=== PATIENT | female | born 1975 | race Caucasian/White ===

== ENCOUNTER 2019-06-11 12:24 | Observation (INO) | payer BC, SELFPAY ==
[2019-06-12 02:08] VITALS: RESP 17
[2019-06-12] MEDS: oxyCODONE-APAP 5-325 mg Tablet PO ×2 (02:08→09:05)
[2019-06-12 04:00] VITALS: BP 123/78; BP 123/79; PULSE 87; RESP 16; TEMP 36.9; O2SAT 96
[2019-06-12 07:35] LABS: Hematocrit 35.5 % (37.0-47.0); Hemoglobin 11.4 g/dL (11.5-15.3); Mean Corpuscular HGB Conc 32.1 g/dL (30.0-36.0); Mean Corpuscular Hemoglobin 31.8 pg (28.0-34.0); Mean Corpuscular Volume 98.9 fL (81-99); Mean Platelet Volume 9.7 fL (7.4-10.4); Platelet Count 239 10^3/cmm (130-400); Red Blood Count 3.59 10^6/uL (4.1-5.3); Red Cell Distribution Width 12.6 % (12.1-15.1); White Blood Count 12.7 10^3/uL (4.0-10.0)
[2019-06-12 09:05] VITALS: RESP 17
[2019-06-12] MEDS: docusate sodium 100 mg Capsule PO (09:06)
--- NOTE | 2019-06-12 10:57 | PM.DCS ---
Discharge Providers Date of Admission: 06/11/19 12:24 Date of Discharge: 06/12/19 Attending Provider at Admission: Star Lizarraga Attending Provider at Discharge: Star Lizarraga Primary Care Provider: France Laguerre MD Diagnoses at Discharge Discharge Diagnosis (1) Pelvic pain: Status: Acute (2) Retained menstruation: Status: Resolved Other Information Additional DC diagnoses/information: Fibromyalgia, H/o Migraine headaches, Anxiety with Panic disorder, Degenerative Disc Disease of Lumbar region Reason for Visit Reason for Visit: Reason For Visit: Pelvic Pain Hospital Course Hospital Course: Patient is a 44-year-old white female 3, para 3-0-0-3 who is status post endometrial ablation. She had presented to the office on 04/19/2019 for evaluation of pelvic pain and suspected ruptured cyst. She had been evaluated in the ER on 03/16/2019 due to sudden onset of severe left lower quadrant pain. During her evaluation she was noted to have increased fluid within the pelvis on ultrasound and was reported as possibly having had a ruptured cyst. Since the evaluation in the ER, she is continued to have pain which is present mainly in the left lower quadrant but does them intermittently across the entire lower abdomen. She denies any patterns to the pain During evaluation in the office, she was noted to have significant left lower quadrant pain. She also had some uterine tenderness noted. She had a repeat ultrasound which was showing an irregular endometrial lining with small fluid collection. Suspicions were for retained menstrual blood following the endometrial ablation. Due to the continued pain, patient decided proceed to a hysterectomy with removal of ovaries. Patient was brought to the hospital for same-day surgery and had a laparoscopic assisted vaginal hysterectomy with bilateral salpingo-oophorectomy performed on 06/11/[address] Star Lizarraga. She tolerated the surgery well. Following surgery she was initially treated with parenteral pain medication and was switched over to oral pain medication by the evening. She was started on clear liquids the evening and tolerated these. Hernandez catheter was discontinued during the night. On post operative day 1, she was doing well. She was ambulating without lightheadedness or dizziness. She stated that her pain was controlled on oral pain medications. She denied any shortness of breath or chest pains. She reported tolerating a regular diet without nausea or vomiting. She was urinating without difficulty. She was doing well and was discharged to home on postoperative day 1. Hormone replacement was discussed with patient. Risks, benefits, and alternatives were discussed. Questions were answered. Patient wished to start estrogen patches. Discharge instructions were discussed. Physical Exam Const: COMMON NORMALS: no apparent distress, average body habitus, alert and well nourished GENERAL APPEARANCE: well developed ORIENTATION/CONSCIOUSNESS: Yes oriented to person, Yes oriented to place and Yes oriented to time Resp: COMMON NORMALS: normal respiratory effort and clear to auscultation bilaterally AUSCULTATION: clear to auscultation bilaterally Cardio: COMMON NORMALS: regular rate, regular rhythm, no gallops, no murmurs and no rub RATE: regular rate RHYTHM: regular rhythm PERIPHERAL PULSES: posterior tibial pulses present GI: COMMON NORMALS: soft to palpation, non-tender, no hepatosplenomegaly and no masses AUSCULTATION: Yes normoactive bowel sounds PALPATION: Yes soft, Yes no hepatosplenomegaly and No hernia OTHER: Laparoscopy sites well approximated without erythema or induration noted. Bruising present. : EXTERNAL FEMALE EXAM: No hernia Neuro: SENSORIUM/ORIENTATION: Yes alert, Yes oriented to person, Yes oriented to place and Yes oriented to time Psych: COMMON NORMALS: affect normal MOOD & AFFECT: Yes euthymic mood Discharge Data Data Completed and Pending: Labs from last 24 hours 06/12/19 06/11/19 07:27 08:03 WBC 12.7 H RBC 3.59 L Hgb 11.4 L Hct 35.5 L MCV 98.9 MCH 31.8 MCHC 32.1 RDW 12.6 Plt Count 239 MPV 9.7 Urine HCG, Qual Cancelled Vitals: Last Vital Signs Temp 98.5 F 06/12/19 04:00 Pulse 87 06/12/19 04:00 Resp 17 06/12/19 09:05 BP 123/79 06/12/19 04:00 Pulse Ox 96 06/12/19 04:00 Discharge Plan Discharge Patient Disposition: Home, Self-Care Condition: Stable Prescriptions: New oxycodone-acetaminophen 5-325 mg Tablet 1 - 2 tab PO Q6H PRN (Reason: Pain) Qty: 30 RF: 0 estradiol 0.05 mg/24 hr patch weekly 1 patch transdermal .once a week Qty: 4 RF: 12 Continued cyclobenzaprine 10 mg Tablet 10 mg PO BEDTIME PRN (Reason: Muscle Spasm) RF: 0 methocarbamol 500 mg Tablet 500 mg PO TID RF: 0 Zyrtec 10 mg Tablet 10 mg PO DAILY RF: 0 Imitrex 25 mg Tablet 25 mg PO QID PRN (Reason: Headache) RF: 0 hydrocodone-acetaminophen 10-325 mg Tablet 1 tab PO Q4H PRN (Reason: Pain) RF: 0 Xanax 0.25 mg Tablet 0.25 mg PO QID RF: 0 Benadryl 25 mg Capsule 50 mg PO QID PRN (Reason: Allergy Symptoms) RF: 0 Zoloft 25 mg Tablet 25 mg PO DAILY RF: 0 Sudogest 30 mg Tablet 30 mg PO Q6H RF: 0 Ambien 5 mg Tablet 5 mg PO BEDTIME RF: 0 Flonase Allergy Relief 50 mcg/actuation [place],Suspension 1 spray INTRANASAL DAILY RF: 0 Topamax 50 mg Tablet 50 mg PO BID RF: 0 milnacipran 100 mg Tablet 100 mg PO BEDTIME RF: 0 Discharge Orders: Discharge Order (Routine); Ordered 06/12/19 Ordered By: Star Lizarraga Referrals: Star Lizarraga MD [Physician] - 2 weeks ([facility] and schedule your 2 week and 6 week follow up appointment) Discharge Diet: Regular Discharge Activity: Limit activity as instructed Patient Instructions: Oxycodone/Acetaminophen (By mouth), Estradiol (By mouth), Laparoscopically Assisted Vaginal Hysterectomy (DC), OB Abdominal Surgery - [facility], OB Discharge Report, OB Food/Drug Interaction Guide Activity Restrictions/Additional Instructions: Take [id number] ibuprofen 200 mg, 4 tablets 3 times a day scheduled for the first four days and then take as needed. Take MiraLax as needed for constipation (follow instructions on the bottle). Discharge Attestations Time Spent in Discharge Care*: less than 30 min Specific Discharge Activities: Specific discharge activities: educating patient Status at Discharge: Cognitive status at discharge: cognitively intact, Behavioral status at discharge: cooperative, Functional status at discharge: independent ambulation Overall status at discharge: patient is back to baseline Quality Metrics Clinical Quality Measures During this hospital stay, did patient experience: None Coding Level of Care Code Acute Director [employer] Diagnoses Pelvic pain R10.2 Retained menstruation N94.89
[2019-06-12 11:45] VITALS: BP 131/88; PULSE 92; RESP 17; TEMP 36.6
== END 2019-06-12 11:45 | disposition home or self-care (01) ==
LOC: OBGYN 15:54
PROVIDERS: Admitting Provider Obstetrics & Gynecology; Family Provider Family Medicine; PCP Family Medicine; Visit Provider Obstetrics & Gynecology
DX: N81.2 Incomplete uterovaginal prolapse (principal); N94.89 Other specified conditions associated with female genital organs and menstrual cycle; N73.6 Female pelvic peritoneal adhesions (postinfective); M79.7 Fibromyalgia; F41.9 Anxiety disorder, unspecified; F17.210 Nicotine dependence, cigarettes, uncomplicated; Z79.891 Long term (current) use of opiate analgesic
CPT/HCPCS: 58552; 36415; 81001; 85025; 86850; 86900; 86901; 88307; G0378; J0690; J1100; J1885; J2001; J2405; J2704; J3010; J3490

== ENCOUNTER 2019-07-03 14:40 | Outpatient (CLI) | payer BC, SELFPAY ==
--- NOTE | 2019-07-03 14:48 | MM_ITS ---
WS: [id number] BILATERAL SCREENING DIGITAL MAMMOGRAM WITH CAD HISTORY: SCREENING COMPARISON: 11/28/2017 and 11/17/2017 and 08/09/2016 Bilateral CC and MLO views submitted. Computer aided detection analyzed. Breast composition: The breasts are heterogeneously dense, which may obscure small masses. No suspici ous masses, microcalcifications or architectural distortion. MM/[id number] IMPRESSION: BI-RADS: 2-Benign FOLLOW UP: 1 Year Follow-up
== END 2019-07-03 14:41 | disposition home or self-care (01) ==
LOC: RADSHAW 14:45
PROVIDERS: Family Provider Family Medicine; PCP Family Medicine; Visit Provider Nurse Practitioner Family
DX: Z12.31 Encounter for screening mammogram for malignant neoplasm of breast (principal)
CPT/HCPCS: 77067

== ENCOUNTER 2019-08-23 09:31 | Outpatient (CLI) | payer BC, SELFPAY ==
--- NOTE | 2019-08-23 09:56 | XR_ITS ---
WS: [id number] Right knee, 3 views, 08/23/2019 Clinical Data: KNEE PAIN Comparison: None. Findings: No fractures or dislocations are seen. The joint spaces are normal. The patella is intact. The soft t issues are unremarkable. XR/XR knee RT 3V* [id number] Impression: Negative right knee.
== END 2019-08-23 09:32 | disposition home or self-care (01) ==
LOC: RAD 09:35
PROVIDERS: Family Provider Family Medicine; PCP Family Medicine; Visit Provider Orthopaedic Surgery
DX: M25.561 Pain in right knee (principal)
CPT/HCPCS: 73562

== ENCOUNTER → 2020-06-01 11:58 | Outpatient (BNVA) | payer BC, SELFPAY | PROVIDERS: Family Provider Family Medicine; PCP Family Medicine; Visit Provider Specialist | DX: M17.11 Unilateral primary osteoarthritis, right knee (principal) | CPT/HCPCS: 73560; 73565 ==

== ENCOUNTER 2020-09-28 14:26 | Outpatient (CLI) | payer OTHER, SELFPAY ==
--- NOTE | 2020-09-28 14:31 | MM_ITS ---
WS: [id number] BILATERAL DIGITAL DIAGNOSTIC MAMMOGRAM MAMMOGRAPHY WITH CAD CLINICAL INFORMATION: LOCALIZED SWELLING,MASS,AND LUMP LT AXILLA COMPARISON: July 03, 2019 TECHNIQUE: Bilateral CC, MLO, and ML views. FINDINGS: Scattered fibroglandular densities bilaterally. Palpable markers left breast no definite underlying m ammographic abnormalities. Dense parenchymal tissue upper outer left breast. Ultrasound is pending. Breast parenchyma is otherwise similar in appearance to July 03, 2019. Incidental axillary tail ly mph nodes. ULTRASOUND BREAST LEFT TECHNIQUE: Ultrasound left breast focused area of concern. CLINICAL INFORMATION: LOCALIZED SWELLING,MASS,AND LUMP LT AXILLA COMPARISON: None. FINDINGS: Ultrasound left breast patient directed area. Incidental axillary tail lymph node measuring 1.6 x 1.5 x 1.0 cm. Preserved fatty hilum. No significant cortical thickening. Otherwise normal underlying arthur ast parenchyma in the areas of concern left breast upper-outer quadrant and left axilla. No suspiciou s lesions to target for biopsy. MM/[id number] IMPRESSION: BI-RADS: 2-Benign FOLLOW UP: 1 Year Follow-up Recommend return to annual screening mammography.
== END 2020-09-28 14:27 | disposition home or self-care (01) ==
LOC: RADSHAW 14:29
PROVIDERS: PCP Family Medicine; Visit Provider Family Medicine
DX: R22.32 Localized swelling, mass and lump, left upper limb (principal)
CPT/HCPCS: 76642; 77066

== ENCOUNTER → 2021-07-25 14:45 | Outpatient (BNVA) | payer OTHER, SELFPAY | PROVIDERS: PCP Family Medicine; Visit Provider Nurse Practitioner | DX: Z20.822 Contact with and (suspected) exposure to COVID-19 (principal) | CPT/HCPCS: 87635 ==

== ENCOUNTER 2021-11-09 12:38 | Outpatient (CLI) | payer OTHER, SELFPAY ==
--- NOTE | 2021-11-09 13:07 | MM_ITS ---
WS: [id number] Bilateral screening 3D tomosynthesis digital mammogram, 11/09/2021 Clinical Data: Z12.39 - Encounter for other screening for malignant neop... Comparison: 09/28/2020, 07/03/2019, 11/28/2017, 11/17/2017, 08/25/2016, 08/09/2016, 03/20/2015, 03/04/2014, , 08/23/2011, 01/05/2007. Findings: The breast parenchymal pattern shows fibroglandular tissue. No spiculated masses or clustered calcifi cations are seen. There are no secondary signs of carcinoma. MM/[id number] Impression: 1. Negative bilateral mammogram unchanged. 2. Recommend annual screening mammograms. BIRADS: 1-Negative FOLLOW UP: 1 Year Follow-up The CAD box car checker was used.
== END 2021-11-09 12:39 | disposition home or self-care (01) ==
LOC: RAD 12:39
PROVIDERS: PCP Family Medicine; Visit Provider Obstetrics & Gynecology
DX: Z12.39 Encounter for other screening for malignant neoplasm of breast (principal)
CPT/HCPCS: 77063; 77067

== ENCOUNTER 2022-04-25 14:53 | Outpatient (CLI) | payer OTHER, MEDICAID, SELFPAY ==
--- NOTE | 2022-04-25 15:09 | XR_ITS ---
WS: [id number] Exam: XR chest 2V* [id number] Date/Time of Exam: 04/25/2022 3:14 PM Reason For Exam: DYSPNEA No priors. Findings: The lungs are clear and fully expanded. Costophrenic angles are sharp. No infiltrates. Bronchovascula r relief appears normal. Cardiac silhouette is unremarkable. Bony elements are intact. Nipple jewelry noted. XR/XR chest 2V* [id number] IMPRESSION: Unremarkable chest radiograph.
== END 2022-04-25 14:54 | disposition home or self-care (01) ==
LOC: RAD 14:55
PROVIDERS: PCP Family Medicine; Visit Provider Family Medicine
DX: R06.00 Dyspnea, unspecified (principal)
CPT/HCPCS: 71046

== ENCOUNTER 2022-05-12 10:02 | Outpatient (CLI) | payer OTHER, SELFPAY | END 2022-05-12 10:03 | disposition home or self-care (01) | LOC: RT 10:03 | PROVIDERS: PCP Family Medicine; Visit Provider Family Medicine | DX: R06.00 Dyspnea, unspecified (principal) | CPT/HCPCS: 94060; 94726; 94729; J7613 ==

== ENCOUNTER 2022-09-30 12:51 | Outpatient (CLI) | payer OTHER, MEDICAID, SELFPAY ==
--- NOTE | 2022-09-30 | US_ITS ---
WS: [id number] ULTRASOUND SOFT TISSUES RIGHT axilla HISTORY: RIGHT AXILLA FULLNESS COMPARISON: None available. TECHNIQUE: 2-D and color Doppler imaging is submitted. Ultrasound in the RIGHT axilla demonstrates no soft tissue masses. No lipomatous tumors. No adenopath y. US/US soft tissue/extremity [id number] IMPRESSION: Negative ultrasound RIGHT axilla.
== END 2022-09-30 12:52 | disposition home or self-care (01) ==
LOC: RAD 12:56
PROVIDERS: PCP Family Medicine; Visit Provider Family Medicine
DX: R22.31 Localized swelling, mass and lump, right upper limb (principal)
CPT/HCPCS: 76882

== ENCOUNTER 2022-10-03 14:00 | Outpatient (CLI) | payer OTHER, MEDICAID, SELFPAY | END 2022-10-03 14:01 | disposition home or self-care (01) | LOC: SLEEP 10-04 15:43 | PROVIDERS: PCP Family Medicine; Visit Provider Family Medicine | DX: R06.83 Snoring (principal); G47.33 Obstructive sleep apnea (adult) (pediatric) | CPT/HCPCS: G0399 ==

== ENCOUNTER → 2023-01-25 15:02 | Outpatient (BNVA) | payer OTHER, MEDICAID, SELFPAY | PROVIDERS: PCP Family Medicine; Visit Provider Specialist | DX: M17.0 Bilateral primary osteoarthritis of knee | CPT/HCPCS: 73560; 73565 ==

== ENCOUNTER 2023-03-10 11:36 | Outpatient (CLI) | payer OTHER, MEDICAID, SELFPAY ==
--- NOTE | 2023-03-10 11:48 | US_ITS ---
WS: [id number] RIGHT UPPER QUADRANT ULTRASOUND HISTORY: RUQ PAIN COMPARISON: None available. Liver: 13.9 cm in length. Normal size liver and echogenicity. No bile duct dilatation or mass. Portal Vein: Normal hepatopetal flow with monophasic waveform. Gallbladder: Numerous stones are present in the gallbladder. There is a large amount of shadowing. No wall thickening CBD: 0.4 cm Pancreas: Portions of the head and tail are obscured. The body is negative. Right kidney: 9.7 cm in length. Normal size and echogenicity. No hydronephrosis or mass. Aorta and IVC: Unremarkable abdominal aorta and IVC. No ascites. IMPRESSION: 1. Cholelithiasis. Numerous stones nearly fill the gallbladder lumen. No evidence for acute cholecyst itis. 2. No bile duct obstruction.
== END 2023-03-10 11:37 | disposition home or self-care (01) ==
PROVIDERS: PCP Family Medicine; Visit Provider Family Medicine
DX: K80.20 Calculus of gallbladder without cholecystitis without obstruction (principal); R10.11 Right upper quadrant pain
CPT/HCPCS: 76705

== ENCOUNTER 2023-04-09 13:03 | Emergency (ER) | payer MEDICAID, SELFPAY ==
[2023-04-09] VITALS (11 sets, daily range): BP systolic 110–152; BP diastolic 55–103; PULSE 88–110; RESP 17–22; TEMP 36.4; O2SAT 84–100; BMI 32.3
--- NOTE | 2023-04-09 13:18 | ED_ITS ---
HPI - Abdominal Pain General: Chief Complaint: Abdominal Pain Stated Complaint: abd pain Time Seen by Provider: 04/09/23 13:18 History of Present Illness: 48-year-old female presents emerged department complaints of nausea vomiting and right upper quadrant abdominal pain that is a 10 out of 10. She states she is been recently seen by a physician and received an ultrasound and is scheduled for a outpatient cholecystectomy in 7 days. She states the pain became unbearable after eating approximately 2 hours ago. She states that eating seems to make the pain worse nothing seems to make the pain better. She denies fevers chills or night sweats. She denies hematemesis or hematochezia Associated Symptoms: Reports nausea and vomiting Review of Systems General: Reports: 10 or more systems reviewed and unremarkable except in HPI and below GI: Reports: abdominal pain, nausea and vomiting PFSH ED PFSH: Medical History Degenerative arthritis of right knee Hypothyroidism Migraine headache Panic disorder Well woman exam with routine gynecological exam Surgical History S/P breast biopsy (~03/2012) S/P hysterectomy (06/11/19) ASTRID THORNTON LOA. Diag: Pelvic pain, Retained menstrual blood. Performed by Dr. Star Lizarraga at [facility] in [place], [place]. S/P lumpectomy, left breast (~2000) Performed at [facility] Status post hysteroscopic ablation of endometrium (06/23/15) Hysteroscopy with hydrothermal endometrial ablation. Performed by Dr. Star Lizarraga at [facility] Family History Mother Hypertension Diabetes Thyroid condition Grandmother Hypertension Brother Diabetes Grandfather Heart disease maternal Unknown No problems noted. Sister Breast cancer, Onset Age: 50 Family/Other Breast cancer Maternal aunt, 40's Social History Smoking and tobacco/nicotine status: former use of tobacco/nicotine Quit status (tobacco/nicotine): has quit using Year quit tobacco: 04/2019 Alcohol intake: current Alcohol intake frequency: few times a month Substance/Drug Use: current Other substance/drug use details: Reports when needed Additional social history: Well balanced diet Physical Exam Const: COMMON NORMALS: patient oriented x3 GENERAL APPEARANCE: in distress NUTRITIONAL APPEARANCE: overweight ORIENTATION/CONSCIOUSNESS: Yes awake, Yes oriented to person, Yes oriented to place and Yes oriented to time HENMT: COMMON NORMALS: normocephalic and moist oral mucous membranes HEAD & SCALP: normocephalic Eye: COMMON NORMALS: Equal, round and reactive pupils present and EOMs intact bilaterally PUPIL: Yes Equal, round and reactive pupils present Neck/C-Spine: COMMON NORMALS: full ROM, supple and no meningeal signs Resp: COMMON NORMALS: normal respiratory effort and clear to auscultation bilaterally AUSCULTATION: clear to auscultation bilaterally Cardio: COMMON NORMALS: regular rate, regular rhythm, S1 normal heart sound present, S2 normal heart sound present and Peripheral pulses 2+ throughout RATE: regular rate RHYTHM: regular rhythm HEART SOUNDS: S1 normal heart sound present and S2 normal heart sound present PERIPHERAL PULSES: Peripheral pulses 2+ throughout GI: COMMON NORMALS: Soft to palpation INSPECTION: Yes normal to inspection AUSCULTATION: Yes normoactive bowel sounds PALPATION: Yes Soft to palpation, Yes Tenderness to palpation present (GI) Details: RUQ and Yes Other GI palpation findings present (Positive Owusu sign) : COMMON NORMALS: Yes no CVA tenderness BLADDER/KIDNEY EXAM: Yes no CVA tenderness Back/Pelvis: COMMON NORMALS: no CVA tenderness, thoracic and lumbar spine normal to inspection and no thoracic nor lumbar tenderness Extremity: COMMON NORMALS: normal to inspection, full ROM and capillary refill normal Neuro: COMMON NORMALS: patient oriented x3, moves all extremities and no sensory deficits noted SENSORIUM/ORIENTATION: Yes oriented to person, Yes oriented to place and Yes oriented to time MENINGEAL SIGNS: Yes no meningeal signs Psych: COMMON NORMALS: mental status grossly normal, Normal thought process present and cooperative THOUGHT PROCESS: Normal thought process present Skin: COMMON NORMALS: no rashes or lesions noted GENERAL SKIN EXAM: no rashes or lesions noted Course ED course: I discussed the patient's laboratory findings as well as her presenting complaints of right upper quadrant abdominal pain with the general surgeon Dr. Potts. The general surgeon did come to the emergency department and see the patient in ER room 1 and advised that she could be discharged home with her follow-up and planned outpatient surgery as previously scheduled. He did request that I provide the patient with Augmentin as well as NSAIDs for pain control. I will provide the patient with discharge instructions and advised her of the general surgeons recommendations. Vital Signs: Vital signs: Vital Signs Temperature 97.5 F L 04/09/23 13:06 Pulse Rate 98 04/09/23 14:16 Respiratory Rate 18 04/09/23 14:52 Blood Pressure 152/102 04/09/23 14:16 Pulse Oximetry 98 04/09/23 14:52 Oxygen Delivery Me thod Room Air 04/09/23 13:06 MDM - Abdominal Pain Medical Decision Making Physical exam completed and documented, I will obtain laboratory evaluation to include a CBC and CMP to evaluate the patient's infectious status and electrolyte status and renal and hepatic function. I will obtain a urinalysis, UDS and urine hCG. I will consult the general surgeon who she is scheduled with for her planned cholecystectomy. I will provide the patient antinausea medication as well as pain medication for pain relief. I will obtain a repeat ultrasound to evaluate for obstruction and worsening of her cholelithiasis/cholecystitis. Medical Records I reviewed the patient's medical records. Lab Data I reviewed the patient's lab results. 04/09/23 13:41 04/09/23 13:41 Labs/Radiology: Radiology Impressions Gallbladder Ultrasound 04/09/23 14:28 IMPRESSION: Cholelithiasis with sonographic findings consistent with acute cholecystitis. Laboratory Results WBC 7.00 10^3/uL (3.29-11.43) 04/09/23 13:41 RBC 4.60 10^6/uL (3.85-5.65) 04/09/23 13:41 Hgb 14.10 g/dL (11.27-16.99) 04/09/23 13:41 Hct 43.3 % (36-47) 04/09/23 13:41 MCV 94.1 fl (85-98) 04/09/23 13:41 MCH 30.7 pg (27-33) 04/09/23 13:41 MCHC 32.6 g/dL (30-55) 04/09/23 13:41 RDW 12.7 % (12.1-15.1) 04/09/23 13:41 Plt Count 320 10^3/cmm (157-399) 04/09/23 13:41 MPV 9.7 fL (7.4-10.4) 04/09/23 13:41 Neut % (Auto) 60.5 % 04/09/23 13:41 Lymph % (Auto) 22.0 % 04/09/23 13:41 [place] % (Auto) 10.6 % 04/09/23 13:41 Eos % (Auto) 5.0 % 04/09/23 13:41 Baso % (Auto) 0.6 % 04/09/23 13:41 Neut # (Auto) 4.24 10^3/uL (1.8-7.7) 04/09/23 13:41 Lymph # (Auto) 1.5 10^3/uL (0.8-4.8) 04/09/23 13:41 [place] # (Auto) 0.7 10^3/uL (0.2-0.9) 04/09/23 13:41 Eos # (Auto) 0.4 10^3/uL (0.0-0.8) 04/09/23 13:41 Baso # (Auto) 0.0 10^3/uL (0.0-0.1) 04/09/23 13:41 Nucleated RBC % (auto) 0 % 04/09/23 13:41 Nucleated RBCs # 0.0 /100WBC 04/09/23 13:41 Sodium 141 mmol/L (136-145) 04/09/23 13:41 Potassium 3.8 mmol/L (3.5-5.1) 04/09/23 13:41 Chloride 104 mmol/L (98-107) 04/09/23 13:41 Carbon Dioxide 26 mmol/L (22-29) 04/09/23 13:41 Anion Gap 14.8 (5-19) 04/09/23 13:41 BUN 6 mg/dL (6-20) 04/09/23 13:41 Creatinine 0.5 mg/dL (0.5-0.9) 04/09/23 13:41 GFR Calculation 131.7 mL/min (90-130) H 04/09/23 13:41 Glucose 115 mg/dL (65-115) 04/09/23 13:41 Calculated Osmolality 291 mOsm/kg (285-295) 04/09/23 13:41 Calcium 9.5 mg/dL (8.5-10.5) 04/09/23 13:41 Total Bilirubin 0.3 mg/dL (0.15-1.2) 04/09/23 13:41 AST 48 U/L (0-32) H 04/09/23 13:41 ALT 32 U/L (0-33) 04/09/23 13:41 Alkaline Phosphatase 75 U/L (35-105) 04/09/23 13:41 Total Protein 6.7 g/dL (6.6-8.7) 04/09/23 13:41 Albumin 4.6 g/dL (3.5-5.2) 04/09/23 13:41 Globulin 2.1 g/dL (1.3-4.6) 04/09/23 13:41 Lipase 58 U/L (13-60) 04/09/23 13:41 Urine Color Yellow (Yellow) 04/09/23 14:02 Urine Appearance Clear (CLEAR) 04/09/23 14:02 Urine pH 7 (5-7) 04/09/23 14:02 Ur Specific [place] 1.015 (1.005-1.030) 04/09/23 14:02 Urine Protein Neg (Negative) 04/09/23 14:02 Urine Glucose (UA) Norm (Normal) 04/09/23 14:02 Urine Ketones Negative (Negative) 04/09/23 14:02 Urine Blood Neg (Negative) 04/09/23 14:02 Urine Nitrate Negative (Negative) 04/09/23 14:02 Urine Bilirubin Neg (Negative) 04/09/23 14:02 Urine Urobilinogen Norm mg/dL (Negative) 04/09/23 14:02 Ur Leukocyte Esterase Negative (Negative) 04/09/23 14:02 Urine Opiates Screen Negative ng/mL (Negative) 04/09/23 14:02 Ur Barbiturates Screen Negative ng/mL (Negative) 04/09/23 14:02 Ur Phencyclidine Scrn Negative ng/mL (Negative) 04/09/23 14:02 Ur Amphetamines Screen Negative ng/mL (Negative) 04/09/23 14:02 U Benzodiazepines Scrn Positive ng/mL (Negative) H 04/09/23 14:02 Urine Cocaine Screen Negative ng/mL (Negative) 04/09/23 14:02 U Marijuana (THC) Screen Positive ng/mL (Negative) H 04/09/23 14:02 All radiology interpretation(s) finalized by discharge ED provider radiology interpretation(s): COMPARISON: US abdomen limited [id number] 03/10/2023 12:01 PM FINDINGS: Liver: Normal. No masses. Gallbladder: Cholelithiasis with gallbladder distention and wall thickening up to 6 mm. Biliary ducts: Normal. No stones. No dilation. Pancreas:? Poorly visualized due to overlying bowel gas. Right kidney: Right kidney measures 8.7 cm in length. No mass. No hydronephrosis. US/US gall bladder [id number] IMPRESSION: Cholelithiasis with sonographic findings consistent with acute cholecystitis. ? Discharge Plan Discharge Patient Disposition: Home Clinical Impression: Cholecystitis with cholelithiasis, Abdominal pain Condition: Stable Prescriptions: New naproxen 500 mg tablet,delayed release (DR/EC) 500 mg PO BID PRN (Reason: pain) Qty: 30 0RF amoxicillin-pot clavulanate 875-125 mg tablet 1 tab PO BID 7 Days Qty: 14 0RF ondansetron HCl 4 mg tablet 4 mg PO Q8H 5 Days Qty: 15 0RF No Action alprazolam [Xanax] 0.25 mg tablet 0.25 mg PO DAILY PRN (Reason: Anxiety) albuterol sulfate 2.5 mg /3 mL (0.083 %) solution for nebulization 2.5 mg inhalation Q6H PRN (Reason: Shortness Of Breath) cyclobenzaprine 10 mg Tablet 10 mg PO BEDTIME PRN (Reason: Muscle Spasm) methocarbamol 500 mg Tablet 500 mg PO TID PRN (Reason: Muscle Spasm) diphenhydramine HCl [Benadryl] 25 mg Capsule 50 mg PO QID PRN (Reason: Allergy Symptoms) zolpidem [Ambien] 5 mg Tablet 5 mg PO BEDTIME PRN (Reason: Sleep) Zyrtec 10 mg tablet 10 mg PO DAILY Flonase Allergy Relief 50 mcg/actuation spray,suspension 1 spray INTRANASAL DAILY PRN (Reason: Allergy Symptoms) Sudogest 30 mg tablet 30 mg PO Q6H PRN (Reason: Congestion) buspirone 5 mg tablet 5 - 10 mg PO TID Vitamin B-2 100 mg Tablet 100 mg PO DAILY sumatriptan succinate 100 mg tablet See Rx Instructions .ROUTE .COMPLEX Rx Instructions: TAKE ONE TABLET BY MOUTH NEEDED directed FOR migraine HEADACHE MAY REPEAT in TWO hours IF needed; max DOSE TWO tablets in 24 hours prochlorperazine maleate 10 mg tablet See Rx Instructions .ROUTE .COMPLEX Rx Instructions: TAKE ONE TABLET BY MOUTH UP TO THREE TIMES DAILY NEEDED FOR HEADACHE Vitamin C 500 mg Tablet 500 mg PO DAILY levothyroxine 50 mcg tablet 50 mcg PO QAM ibuprofen 200 mg Tablet 800 mg PO Q6H PRN (Reason: Pain) fluoxetine 20 mg capsule See Rx Instructions .ROUTE .COMPLEX Rx Instructions: TAKE THREE CAPSULES daily FOR TWO WEEKS, THEN TAKE TWO CAPSULES daily FOR TWO WEEKS, THEN TAKE ONE CAPSULE daily FOR TWO WEEKS, THEN STOP Advair HFA 115-21 mcg/actuation HFA aerosol inhaler 2 puff INHALATION BID Savella 100 mg tablet 100 mg PO DAILY Women's Multivitamin 18 mg iron-400 mcg-500 mg Tablet 1 tab PO DAILY Ajovy Autoinjector 225 mg/1.5 mL auto-injector 225 mg SUBCUT Q30D estradiol 1 mg tablet 1 mg PO QAM Discharge Orders: Discharge ED (Routine); Ordered 04/09/23 Ordered By: Felipe Tyson Referrals: Ochoa Potts MD [Physician] - 4-7 days (follow-up as scheduled) France Laguerre MD [Primary Care Provider] - Discharge Diet: Advance as tolerated Discharge Activity: Resume usual activity Patient Instructions: Cholecystitis (ED), Abdominal Pain (ED) Coding Level of Care Code ED Special Order Jeweler for Raymond Vogel
[2023-04-09 13:53] LABS: Basophils % 0.6 %; Eosinophils # 0.4 10^3/uL (0.0-0.8); Hematocrit 43.3 % (36-47); Lymphocytes # 1.5 10^3/uL (0.8-4.8); Mean Corpuscular HGB Conc 32.6 g/dL (30-55); Mean Corpuscular Hemoglobin 30.7 pg (27-33); Mean Corpuscular Volume 94.1 fl (85-98); Mean Platelet Volume 9.7 fL (7.4-10.4); Monocytes # 0.7 10^3/uL (0.2-0.9); Monocytes % 10.6 %; Neutrophils # 4.24 10^3/uL (1.8-7.7); Neutrophils % 60.5 %; Nucleated Red Blood Cells % 0 %; Platelet Count 320 10^3/cmm (157-399); Red Cell Distribution Width 12.7 % (12.1-15.1)
[2023-04-09] MEDS: lidocaine 2% viscous 15 ML, aluminum-mag hydrox-simethicon 30 ML, sucralfate oral liq 1 GM PO (14:05)
[2023-04-09] MEDS: ondansetron 2 mg/ML SDV 2 mL 4 MG IVP (14:08)
[2023-04-09 14:11] LABS: Alanine Aminotransferase 32 U/L (0-33); Albumin Level 4.6 g/dL (3.5-5.2); Alkaline Phosphatase 75 U/L (35-105); Anion Gap 14.8 (5-19); Aspartate Amino Transferase 48 U/L (0-32); Blood Urea Nitrogen 6 mg/dL (6-20); Calcium 9.5 mg/dL (8.5-10.5); Carbon Dioxide 26 mmol/L (22-29); Chloride 104 mmol/L (98-107); Globulin 2.1 g/dL (1.3-4.6); Glomerular Filtration Rate 131.7 mL/min (90-130); Glucose 115 mg/dL (65-115); Lipase 58 U/L (13-60); Osmolality Calculated 291 mOsm/kg (285-295); Potassium 3.8 mmol/L (3.5-5.1); Sodium 141 mmol/L (136-145); Total Bilirubin 0.3 mg/dL (0.15-1.2); Total Protein 6.7 g/dL (6.6-8.7)
[2023-04-09 14:16] LABS: Add Urine Microscopic? NO; Charge for UA Resulting for Rev
[2023-04-09 14:24] LABS: Urine Appearance Clear (CLEAR); Urine Color Yellow (Yellow); pH Urine 7 (5-7)
[2023-04-09 14:25] LABS: Bilirubin Urine Neg (Negative); Blood Urine Neg (Negative); Glucose Urine UA Norm (Normal); Ketones Urine Negative (Negative); Leukocyte Esterase Urine Negative (Negative); Nitrate Urine Negative (Negative); Protein Urine Neg (Negative); Specific Gravity, Urine 1.015 (1.005-1.030); Urobilinogen Urine Norm (Negative)
--- NOTE | 2023-04-09 14:28 | USR_ITS ---
PROCEDURE INFORMATION: Exam: US Abdomen, Limited; Right Upper Quadrant Exam date and time: 04/09/2023 3:03 PM Age: 48 years old Clinical indication: Abdominal pain; Acute; Additional info: Ruq abd pain TECHNIQUE: Imaging protocol: Real time ultrasound of the abdomen with image documentation. Limited exam focused on the right upper quadrant. COMPARISON: US abdomen limited [id number] 03/10/2023 12:01 PM FINDINGS: Liver: Normal. No masses. Gallbladder: Cholelithiasis with gallbladder distention and wall thickening up to 6 mm. Biliary ducts: Normal. No stones. No dilation. Pancreas: Poorly visualized due to overlying bowel gas. Right kidney: Right kidney measures 8.7 cm in length. No mass. No hydronephrosis. US/US gall bladder [id number] IMPRESSION: Cholelithiasis with sonographic findings consistent with acute cholecystitis.
[2023-04-09 14:35] LABS: Amphetamines Screen Urine Negative (Negative); Barbiturates Screen Urine Negative (Negative); Benzodiazepines Screen Urine Positive (Negative); Cocaine Screen Urine Negative (Negative); PCP Screen Urine Negative (Negative); THC Screen Urine Positive (Negative)
[2023-04-09 14:36] LABS: Opiate Screen Urine Negative (Negative)
[2023-04-09] MEDS: HYDROmorphone 1 mg/mL INJ 1 mL IVP (14:52)
[2023-04-09] MEDS: ketorolac 30 mg/mL INJ 15 MG IVP (16:02)
[2023-04-09] MEDS: amoxicillin-clav 875-125 mg Tablet 1 TAB PO (16:37)
== END 2023-04-09 16:48 | disposition home or self-care (01) ==
PROVIDERS: Emergency Provider Internal Medicine; PCP Family Medicine
DX: K80.10 Calculus of gallbladder with chronic cholecystitis without obstruction (principal); Z87.891 Personal history of nicotine dependence
CPT/HCPCS: 76705; 80053; 80306; 81003; 83690; 85025; 96374; 96375; 99285; J1170; J1885; J2405

== ENCOUNTER 2023-08-18 15:02 | Outpatient (CLI) | payer OTHER, MEDICAID, SELFPAY ==
--- NOTE | 2023-08-18 15:16 | MM_ITS ---
WS: [id number] BILATERAL 3D TOMOSYNTHESIS DIGITAL SCREENING MAMMOGRAPHY WITH CAD CLINICAL INFORMATION: SCREENING HISTORY: Screening mammogram. No current complaints. COMPARISON: 2021 TECHNIQUE: Bilateral CC and MLO views. FINDINGS: Scattered fibroglandular densities bilaterally. No suspicious focal mass, asymmetry, calcifications, or architectural distortion. No evidence of malignancy. Stable dense parenchymal tissue upper outer L EFT breast. Stable intramammary lymph nodes. IMPRESSION: MM/[place] [id number] BI-RADS: 2-Benign FOLLOW UP: 1 Year Follow-up Recommend return to annual screening mammography.
== END 2023-08-18 15:03 | disposition home or self-care (01) ==
LOC: RAD 15:03
PROVIDERS: PCP Family Medicine; Visit Provider Family Medicine
DX: Z12.31 Encounter for screening mammogram for malignant neoplasm of breast (principal)
CPT/HCPCS: 77063; 77067

== ENCOUNTER 2024-05-22 00:39 | Observation (INO) | payer OTHER, MEDICAID, SELFPAY ==
[2024-05-22] VITALS (22 sets, daily range): BP systolic 117–171; BP diastolic 75–107; PULSE 64–102; RESP 15–27; TEMP 35–36.4; O2SAT 91–100
--- NOTE | 2024-05-22 00:43 | CTR_ITS ---
PROCEDURE INFORMATION: Exam: CT Head Without Contrast Exam date and time: 05/22/2024 12:42 AM Age: 49 years old Clinical indication: Stroke-like symptoms; Right facial droop; Additional info: Symptoms of acute stroke TECHNIQUE: Imaging protocol: Computed tomography of the head without contrast. Radiation optimization: All CT scans at this facility use at least one of these dose optimization techniques: automated exposure control; mA and/or kV adjustment per patient size (includes targeted exams where dose is matched to clinical indication); or iterative reconstruction. Other technique: STROKE PROTOCOL was implemented. COMPARISON: No relevant prior studies available. RADIATION DOSE METRICS: Total DLP (mGy-cm): 1130.44 FINDINGS: Brain: No acute intracranial hemorrhage. No mass effect or midline shift. No acute extraaxial fluid collection. Unremarkable white matter. Cerebral ventricles: No ventriculomegaly. Paranasal sinuses: Partially visualized sinuses are unremarkable. No fluid levels. Mastoid air cells: Visualized mastoid air cells are well aerated. Bones: Unremarkable. No acute fracture. Soft tissues: Unremarkable. CT/CT head thrombolytic [id number] IMPRESSION: No acute intracranial findings. ASSESSMENT: ASPECTS ([place] Stroke Program Early CT Score) is 10.
--- NOTE | 2024-05-22 00:43 | XRR_ITS ---
PROCEDURE INFORMATION: Exam: XR Chest Exam date and time: 05/22/2024 1:03 AM Age: 49 years old Clinical indication: Shortness of breath; Additional info: Neurodeficit TECHNIQUE: Imaging protocol: Radiologic exam of the chest. Views: 1 view. COMPARISON: CR XR chest 2V* [id number] 04/25/2022 3:14 PM FINDINGS: Lungs: No consolidation or pulmonary edema. Pleural spaces: No pleural effusion. No pneumothorax. Heart/Mediastinum: Cardiomediastinal silhouette is normal in size. Bones/joints: No acute fractures. XR/XR chest 1V portable [id number] IMPRESSION: No acute findings.
--- NOTE | 2024-05-22 00:43 | CTR_ITS ---
PROCEDURE INFORMATION: Exam: CTA Head With Contrast, Arteriography Exam date and time: 05/22/2024 12:46 AM Age: 49 years old Clinical indication: Cognitive deficit and dizziness and giddiness and numbness and speech disturbance; Other symptoms involving cognitive function; Slurred speech; Additional info: Head pain right-sided facial droop TECHNIQUE: Imaging protocol: Computed tomographic angiography of the head with contrast. Exam focused on the arteries. 3D rendering (Not supervised by radiologist): MIP and/or 3D reconstructed images were created by the technologist. Radiation optimization: All CT scans at this facility use at least one of these dose optimization techniques: automated exposure control; mA and/or kV adjustment per patient size (includes targeted exams where dose is matched to clinical indication); or iterative reconstruction. Contrast material: OMNI 350; Contrast volume: 100 ml; Contrast route: INTRAVENOUS (IV); COMPARISON: CT head thrombolytic [id number] 05/22/2024 12:42 AM RADIATION DOSE METRICS: Total DLP (mGy-cm): 510.79 FINDINGS: ANTERIOR CIRCULATION: Right internal carotid artery: Intracranial segment is patent with no significant stenosis. No aneurysm. Right middle cerebral artery: No occlusion or significant stenosis. No aneurysm. Right anterior cerebral artery: No occlusion or significant stenosis. No aneurysm. Left internal carotid artery: Intracranial segment is patent with no significant stenosis. No aneurysm. Left middle cerebral artery: No occlusion or significant stenosis. No aneurysm. Left anterior cerebral artery: No occlusion or significant stenosis. No aneurysm. 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 Left vertebral artery: No occlusion or significant stenosis. No aneurysm. Basilar artery: No occlusion or significant stenosis. No aneurysm. Right posterior cerebral artery: No occlusion or significant stenosis. No aneurysm. There is a origin of the right posterior cerebral artery, which is a normal variant. Left posterior cerebral artery: No occlusion or significant stenosis. No aneurysm. There is a origin of the left posterior cerebral artery, which is a normal variant. Brain: There is no evidence of acute intracranial hemorrhage, subacute or chronic ischemic infarct, acute intra-axial or extra-axial fluid collection, mass effect, or midline shift. Intracranial venous sinuses are patent. Cerebral ventricles: No ventriculomegaly. Bones/joints: Unremarkable. No acute fracture. Soft tissues: Unremarkable. PROCEDURE INFORMATION: Exam: CTA Neck With Contrast Exam date and time: 05/22/2024 12:46 AM Age: 49 years old Clinical indication: Cognitive deficit and dizziness and giddiness and numbness and speech disturbance; Other symptoms involving cognitive function; Slurred speech; Additional info: Head pain right-sided facial droop TECHNIQUE: Imaging protocol: Computed tomographic angiography of the neck with contrast. Exam focused on the cervical segments of the vasculature. 3D rendering (Not supervised by radiologist): MIP and/or 3D reconstructed images were created by the technologist. Radiation optimization: All CT scans at this facility use at least one of these dose optimization techniques: automated exposure control; mA and/or kV adjustment per patient size (includes targeted exams where dose is matched to clinical indication); or iterative reconstruction. Contrast material: OMNI 350; Contrast volume: 100 ml; Contrast route: INTRAVENOUS (IV); COMPARISON: CT head thrombolytic [id number] 05/22/2024 12:42 AM RADIATION DOSE METRICS: Total DLP (mGy-cm): 0 FINDINGS: Right common carotid artery: No stenosis. No dissection or occlusion. Right internal carotid artery: No stenosis of the extracranial segment. No dissection or occlusion. Right external carotid artery: No occlusion or stenosis of the origin. Left common carotid artery: No stenosis. No dissection or occlusion. Left internal carotid artery: No stenosis of the extracranial segment. No dissection or occlusion. Left external carotid artery: No occlusion or stenosis of the origin. 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 No blood flow in the mid and distal segments of the right vertebral artery. Left vertebral artery: No stenosis. No dissection or occlusion. Aorta: The ascending thoracic aorta is dilated to 3.7 cm in diameter. Aortic arch is normal in size. Other arteries: Other major neck arteries are unremarkable. Soft tissues: Normal. No significant soft tissue swelling. Bones/joints: No acute fracture. CT/CT angio headneck* [id number] IMPRESSION: 1. No acute intracranial findings. 2. 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 Brain MRI without IV contrast is recommended. 3. No other major intracranial artery aneurysm, stenosis or occlusion. 4. Intracranial venous sinuses are patent. IMPRESSION: 1. 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 No blood flow in the mid and distal segments of the right vertebral artery. 2. The ascending thoracic aorta is dilated to 3.7 cm in diameter. Aortic arch is normal in size. REFERENCES: NASCET CRITERIA. The degree of stenosis in the cervical segment of the internal carotid artery is based on NASCET criteria. Normal is no stenosis. Mild is less than 50% stenosis. Moderate is 50-69% stenosis. Severe is 70% to 99% stenosis. Total occlusion is no detectable patent lumen.
--- NOTE | 2024-05-22 00:55 | ECG_ITS ---
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 Measurements Intervals [place] Rate: 90 P: 52 CT: 141 QRS: 62 QRSD: 89 T: 75 QT: 377 QTc: 462 Interpretive Statements SINUS RHYTHM No previous ECG available for comparison Electronically Signed On 05-22-2024 01:00:00 MICROBIOLOGY SUPERVISOR by Felipe Lopez M.D. [email or web address]
--- NOTE | 2024-05-22 00:55 | W.ED.NEUROSD ---
HPI - Neuro Symptoms/Deficit General: Chief Complaint: Neuro Symptoms/Deficit Stated Complaint: STROKE ALERT Time Seen by Provider: 05/22/24 00:43 History of Present Illness: Patient brought in by EMS with right-sided facial droop and sudden onset headache. Last known well was 2329. Patient had taken Ambien and drink a glass of wine prior to that 2329 patient held for complaint of dizziness and felt she is going to pass out. Patient planed EMS of right-sided facial droop difficulty swallowing left sided frontal headache with it in emesis. X 1, glucose was 105 on arrival. Blood pressure is 171/107. Related Data Home Medications Medication Instructions Recorded Confirmed cyclobenzaprine 10 mg tablet 10 mg PO BEDTIME PRN Muscle Spasm 06/11/19 05/17/24 diphenhydramine HCl 25 mg capsule 50 mg PO QID PRN Allergy Symptoms 06/11/19 05/17/24 (Benadryl) zolpidem 5 mg tablet (Ambien) 5 mg PO BEDTIME PRN Sleep 06/11/19 05/17/24 cetirizine 10 mg tablet (Zyrtec) 10 mg PO DAILY 08/07/20 05/17/24 fluticasone propionate 50 1 spray intranasal DAILY PRN 08/07/20 05/17/24 mcg/actuation nasal Allergy Symptoms spray,suspension (Flonase Allergy Relief) albuterol sulfate 2.5 mg/3 mL 2.5 mg inhalation Q6H PRN 09/14/21 05/17/24 (0.083 %) solution for nebulization Shortness Of Breath alprazolam 0.25 mg tablet (Xanax) 0.25 mg PO DAILY PRN Anxiety 09/14/21 05/17/24 pseudoephedrine HCl 30 mg tablet 30 mg PO Q6H PRN Congestion 09/14/21 05/17/24 (Sudogest) ascorbic acid (vitamin C) 500 mg 500 mg PO DAILY 04/09/23 05/17/24 tablet (Vitamin C) buspirone 5 mg tablet 5 - 10 mg PO TID 04/09/23 05/17/24 estradiol 1 mg tablet 1 mg PO QAM 04/09/23 05/17/24 fluticasone propionate 115 2 puff inhalation BID 04/09/23 05/17/24 mcg-salmeterol 21 mcg/actuation HFA inhaler (Advair HFA) fremanezumab-vfrm 225 mg/1.5 mL 225 mg SUBCUT Q30D 04/09/23 05/17/24 subcutaneous auto-injector (Ajovy) ibuprofen 200 mg tablet 800 mg PO Q6H PRN Pain 04/09/23 05/17/24 levothyroxine 50 mcg tablet 50 mcg PO QAM 04/09/23 05/17/24 milnacipran 100 mg tablet (Savella) 100 mg PO DAILY 04/09/23 05/17/24 pgzjkprv-lwd-qpno-FA-Ca carb-vit K 1 tab PO DAILY 04/09/23 05/17/24 18 mg iron-400 mcg-500 mg tablet prochlorperazine maleate 10 mg See Rx Instructions .Route .COMPLEX 04/09/23 05/17/24 tablet riboflavin (vitamin B2) 100 mg 100 mg PO DAILY 04/09/23 05/17/24 tablet (Vitamin B-2) sumatriptan succinate 100 mg tablet See Rx Instructions .Route .COMPLEX 04/09/23 05/17/24 Previous Rx's Medication Instructions Recorded naproxen 500 mg tablet,delayed 500 mg PO BID PRN pain #30 tabs 04/09/23 release Allergies Allergy/AdvReac Type Severity Reaction Status Date / Time No Known Allergies Allergy Verified 05/17/24 11:36 Review of Systems General: Reports: 10 or more systems reviewed and unremarkable except in HPI and below PFSH ED PFSH: Medical History Hypothyroidism Well woman exam with routine gynecological exam Migraine headache Degenerative arthritis of right knee Panic disorder Surgical History S/P breast biopsy (~03/2012) S/P hysterectomy (06/11/19) ASTRID THORNTON LOA. Diag: Pelvic pain, Retained menstrual blood. Performed by Dr. Star Lizarraga at [facility] in [place], [place]. Status post hysteroscopic ablation of endometrium (06/23/15) Hysteroscopy with hydrothermal endometrial ablation. Performed by Dr. Star Lizarraga at [facility] [place] S/P lumpectomy, left breast (~2000) Performed at [facility] [place] Family History Mother Hypertension Diabetes Thyroid disease Grandmother Hypertension Brother Diabetes Grandfather Heart disease maternal Unknown No problems noted. Sister Breast cancer, Onset Age: 50 Family/Other Breast cancer Maternal aunt, 40's Social History Smoking and tobacco/nicotine status: former use of tobacco/nicotine Quit status (tobacco/nicotine): has quit using Year quit tobacco: 04/2019 Alcohol intake: current Alcohol intake frequency: few times a month Substance/Drug Use: current Other substance/drug use details: Reports when needed Additional social history: Well balanced diet NIH stroke score NIHSS: Level Of Consciousness - 1a: 0 Level Of Consciousness Questions - 1b: Both Correct Level Of Consciousness Commands - 1c: Both Correct Best Gaze - 2: Normal Visual Galarza - 3: No Visual Loss Facial Palsy - 4: Minor Paralysis Motor Arm Right - 5: No Drift Motor Arm Left - 5: No Drift Motor Leg Right - 6: No Drift Motor Leg Left - 6: No Drift Limb Ataxia - 7: Absent Sensory - 8: Mild To Moderate Loss Best Language - 9: No Aphasia Dysarthia - 10: Normal Extinction And Inattention - 11: 0 Score: Total Score: 2 Physical Exam Const: COMMON NORMALS: no acute distress, average body habitus, patient oriented x3, no limitations, healthy appearing, alert and well nourished HENMT: COMMON NORMALS: normocephalic, atraumatic, hearing grossly normal bilaterally, external ears normal, Normal external nose present and moist oral mucous membranes HEAD & SCALP: normocephalic and atraumatic NOSE: Normal external nose present EXTERNAL EAR: Yes external ears normal Eye: COMMON NORMALS: Equal, round and reactive pupils present, EOMs intact bilaterally, conjunctivae normal and no scleral icterus CONJUNCTIVA: Yes conjunctivae normal PUPIL: Yes Equal, round and reactive pupils present Neck/C-Spine: COMMON NORMALS: full ROM, no lymphadenopathy, supple, no meningeal signs, no JVD and Thyroid normal THYROID: Thyroid normal Chest: COMMONS NORMALS: normal inspection of the chest and normal palpation of entire chest wall Resp: COMMON NORMALS: normal respiratory effort, No retractions, No use of accessory muscles and clear to auscultation bilaterally AUSCULTATION: clear to auscultation bilaterally Cardio: COMMON NORMALS: no JVD, regular rate, regular rhythm, S1 normal heart sound present, S2 normal heart sound present, No gallops present (Cardio), No clicks present (Cardio), No murmurs present (Cardio) and No rub (Cardio) RATE: regular rate RHYTHM: regular rhythm HEART SOUNDS: S1 normal heart sound present and S2 normal heart sound present GI: COMMON NORMALS: Normal to inspection, nondistended, normoactive bowel sounds present, Soft to palpation, non-tender, No hepatosplenomegaly present and no masses PALPATION: Yes Soft to palpation and Yes No hepatosplenomegaly present Neuro: COMMON NORMALS: patient oriented x3 SENSORIUM/ORIENTATION: Yes alert MENINGEAL SIGNS: Yes no meningeal signs Course Vital Signs: Vital signs: Vital Signs Temperature 95 F L 05/22/24 00:59 Pulse Rate 64 05/22/24 03:30 Respiratory Rate 17 05/22/24 03:30 Blood Pressure 140/98 05/22/24 03:30 Pulse Oximetry 99 05/22/24 03:30 Oxygen Delivery Me thod Room Air 05/22/24 03:30 MDM - Neuro Symptoms/Deficit Medical Decision Making Case was discussed with Dr. Huertas along with the CT and CTA images that showed the right vertebral artery occlusion he does not feel that this is contributing to her symptomatology. Suggest admitting her to the hospital following up with further evaluation testing specifically the MRI without contrast that the radiologist suggested. After giving the patient 10 of hydralazine, 8 of Zofran, and Depacon 500 mg patient's blood pressure improved to 137/84 and patient was feeling significantly better but still had a mild left frontal headache. Discussed these results with Dr. Tejeda who placed the patient on [facility] [facility] [employer] with telemetry OBSERVATION Lab Data 05/22/24 00:56 05/22/24 00:56 Radiology Impressions Chest X-Ray 05/22/24 00:43 IMPRESSION: No acute findings. Head CT 05/22/24 00:43 IMPRESSION: No acute intracranial findings. ASSESSMENT: ASPECTS ([place] Stroke Program Early CT Score) is 10. ADDENDUM: 05/22/24 0109 The patient's physician, Noah Hartman was informed by phone by Dr. Webber about the findings and recommendations on 05/22/2024 at 1:07 AM [employer]ERCIAL [employer]. The ordering physician verbalized understanding. Head/Neck CTA 05/22/24 00:43 IMPRESSION: 1. No acute intracranial findings. 2. 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 Brain MRI without IV contrast is recommended. 3. No other major intracranial artery aneurysm, stenosis or occlusion. 4. Intracranial venous sinuses are patent. IMPRESSION: 1. 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 No blood flow in the mid and distal segments of the right vertebral artery. 2. The ascending thoracic aorta is dilated to 3.7 cm in diameter. Aortic arch is normal in size. REFERENCES: NASCET CRITERIA. The degree of stenosis in the cervical segment of the internal carotid artery is based on NASCET criteria. Normal is no stenosis. Mild is less than 50% stenosis. Moderate is 50-69% stenosis. Severe is 70% to 99% stenosis. Total occlusion is no detectable patent lumen. ADDENDUM: 05/22/24 0150 THIS REPORT CONTAINS FINDINGS THAT MAY BE CRITICAL TO PATIENT CARE. The findings and recommendations were verbally communicated via telephone conference with Noah Hartman by Dr. Webber on 05/22/2024 at 1:48 AM COMMERCIAL [employer]. The findings were acknowledged and understood. Laboratory Results WBC 12.74 10^3/uL (3.29-11.43) H 05/22/24 00:56 RBC 3.97 10^6/uL (3.85-5.65) 05/22/24 00:56 Hgb 12.30 g/dL (11.27-16.99) 05/22/24 00:56 Hct 38.6 % (36-47) 05/22/24 00:56 MCV 97.2 fl (85-98) 05/22/24 00:56 MCH 31.0 pg (27-33) 05/22/24 00:56 MCHC 31.9 g/dL (30-55) 05/22/24 00:56 RDW 12.7 % (12.1-15.1) 05/22/24 00:56 Plt Count 282 10^3/cmm (157-399) 05/22/24 00:56 MPV 9.9 fL (7.4-10.4) 05/22/24 00:56 Neut % (Auto) 55.1 % 05/22/24 00:56 Lymph % (Auto) 30.3 % 05/22/24 00:56 Sully % (Auto) 8.7 % 05/22/24 00:56 Eos % (Auto) 1.6 % 05/22/24 00:56 Baso % (Auto) 0.9 % 05/22/24 00:56 Neut # (Auto) 7.02 10^3/uL (1.8-7.7) 05/22/24 00:56 Lymph # (Auto) 3.9 10^3/uL (0.8-4.8) 05/22/24 00:56 Sully # (Auto) 1.1 10^3/uL (0.2-0.9) H 05/22/24 00:56 Eos # (Auto) 0.2 10^3/uL (0.0-0.8) 05/22/24 00:56 Baso # (Auto) 0.1 10^3/uL (0.0-0.1) 05/22/24 00:56 Nucleated RBC % (auto) 0 % 05/22/24 00:56 Nucleated RBCs # 0.0 /100WBC 05/22/24 00:56 PT 12.30 SECONDS (12.1-14.9) 05/22/24 00:56 INR 0.89 (0.8-1.2) 05/22/24 00:56 APTT 19.6 SECONDS (23.9-36.7) L 05/22/24 00:56 Sodium 137 mmol/L (136-145) 05/22/24 00:56 Potassium 3.2 mmol/L (3.5-5.1) L 05/22/24 00:56 Chloride 103 mmol/L (98-107) 05/22/24 00:56 Carbon Dioxide 24 mmol/L (22-29) 05/22/24 00:56 Anion Gap 13.2 (5-19) 05/22/24 00:56 BUN 7 mg/dL (6-20) 05/22/24 00:56 Creatinine 0.7 mg/dL (0.5-0.9) 05/22/24 00:56 GFR Calculation 88.9 mL/min (90-130) L 05/22/24 00:56 Glucose 149 mg/dL (65-115) H 05/22/24 00:56 Calculated Osmolality 285 mOsm/kg (285-295) 05/22/24 00:56 Calcium 8.6 mg/dL (8.5-10.5) 05/22/24 00:56 Magnesium 1.9 mg/dL (1.7-2.3) 05/22/24 00:56 Total Bilirubin 0.2 mg/dL (0.15-1.2) 05/22/24 00:56 AST 18 U/L (0-32) 05/22/24 00:56 ALT 37 U/L (0-33) H 05/22/24 00:56 Alkaline Phosphatase 68 U/L (35-105) 05/22/24 00:56 C-Reactive Protein 3.0 mg/L (0.0-4.9) 05/22/24 00:56 Total Protein 4.9 g/dL (6.6-8.7) L 05/22/24 00:56 Albumin 3.2 g/dL (3.5-5.2) L 05/22/24 00:56 Globulin 1.7 g/dL (1.3-4.6) 05/22/24 00:56 TSH 3.30 uIU/mL (0.27-4.20) 05/22/24 00:56 Urine Color Yellow (Yellow) 05/22/24 02:03 Urine Appearance Clear (CLEAR) 05/22/24 02:03 Urine pH 7.0 (5-7) 05/22/24 02:03 Ur Specific [place] 1.029 (1.005-1.030) 05/22/24 02:03 Urine Protein Negative (Negative) 05/22/24 02:03 Urine Glucose (UA) Negative (Normal) 05/22/24 02:03 Urine Ketones Negative (Negative) 05/22/24 02:03 Urine Blood Negative (Negative) 05/22/24 02:03 Urine Nitrate Negative (Negative) 05/22/24 02:03 Urine Bilirubin Negative (Negative) 05/22/24 02:03 Urine Urobilinogen 0.2 mg/dL (Negative) 05/22/24 02:03 Ur Leukocyte Esterase Negative (Negative) 05/22/24 02:03 Urine RBC 0-2 /hpf (0-2) 05/22/24 02:03 Urine WBC 0-5 /hpf (0-5) 05/22/24 02:03 Ur Squamous Epith Cells 0-5 /hpf (0-5) 05/22/24 02:03 Amorphous Sediment Not Reportable 05/22/24 02:03 Urine Bacteria None seen /hpf (NONE) 05/22/24 02:03 Hyaline Casts 0.40 /lpf 05/22/24 02:03 Salicylates < 0.3 mg/dL (3-10) L 05/22/24 00:56 Urine Opiates Screen Negative ng/mL (Negative) 05/22/24 02:03 Acetaminophen < 5.0 ug/mL (10-30) L 05/22/24 00:56 Ur Barbiturates Screen Negative ng/mL (Negative) 05/22/24 02:03 Ur Phencyclidine Scrn Negative ng/mL (Negative) 05/22/24 02:03 Ur Amphetamines Screen Negative ng/mL (Negative) 05/22/24 02:03 U Benzodiazepines Scrn Negative ng/mL (Negative) 05/22/24 02:03 Urine Cocaine Screen Negative ng/mL (Negative) 05/22/24 02:03 U Marijuana (THC) Screen Positive ng/mL (Negative) H 05/22/24 02:03 Ethyl Alcohol < 10 mg/dL (0-10) 05/22/24 00:56 All radiology interpretation(s) finalized by discharge Discharge Plan Discharge Condition: Stable Prescriptions: No Action alprazolam [Xanax] 0.25 mg tablet 0.25 mg PO DAILY PRN (Reason: Anxiety) albuterol sulfate 2.5 mg /3 mL (0.083 %) solution for nebulization 2.5 mg inhalation Q6H PRN (Reason: Shortness Of Breath) cyclobenzaprine 10 mg Tablet 10 mg PO BEDTIME PRN (Reason: Muscle Spasm) diphenhydramine HCl [Benadryl] 25 mg Capsule 50 mg PO QID PRN (Reason: Allergy Symptoms) zolpidem [Ambien] 5 mg Tablet 5 mg PO BEDTIME PRN (Reason: Sleep) Zyrtec 10 mg tablet 10 mg PO DAILY Flonase Allergy Relief 50 mcg/actuation spray,suspension 1 spray INTRANASAL DAILY PRN (Reason: Allergy Symptoms) Sudogest 30 mg tablet 30 mg PO Q6H PRN (Reason: Congestion) buspirone 5 mg tablet 5 - 10 mg PO TID Vitamin B-2 100 mg Tablet 100 mg PO DAILY sumatriptan succinate 100 mg tablet See Rx Instructions .ROUTE .COMPLEX Rx Instructions: TAKE ONE TABLET BY MOUTH NEEDED directed FOR migraine HEADACHE MAY REPEAT in TWO hours IF needed; max DOSE TWO tablets in 24 hours prochlorperazine maleate 10 mg tablet See Rx Instructions .ROUTE .COMPLEX Rx Instructions: TAKE ONE TABLET BY MOUTH UP TO THREE TIMES DAILY NEEDED FOR HEADACHE Vitamin C 500 mg Tablet 500 mg PO DAILY levothyroxine 50 mcg tablet 50 mcg PO QAM ibuprofen 200 mg Tablet 800 mg PO Q6H PRN (Reason: Pain) Advair HFA 115-21 mcg/actuation HFA aerosol inhaler 2 puff INHALATION BID Savella 100 mg tablet 100 mg PO DAILY Women's Multivitamin 18 mg iron-400 mcg-500 mg Tablet 1 tab PO DAILY Ajovy Autoinjector 225 mg/1.5 mL auto-injector 225 mg SUBCUT Q30D estradiol 1 mg tablet 1 mg PO QAM naproxen 500 mg tablet,delayed release (DR/EC) 500 mg PO BID PRN (Reason: pain) Qty: 30 0RF Referrals: France Laguerre MD [Primary Care Provider] - Coding Level of Care Code ED Front Office Associate for Raymond Vogel
[2024-05-22] MEDS: iohexol 350 mg/mL 500 mL Btl (per mL) IV (00:58)
[2024-05-22 01:01] LABS: Basophils # 0.1 10^3/uL (0.0-0.1); Basophils % 0.9 %; Eosinophils # 0.2 10^3/uL (0.0-0.8); Eosinophils % 1.6 %; Hematocrit 38.6 % (36-47); Lymphocytes # 3.9 10^3/uL (0.8-4.8); Lymphocytes % 30.3 %; Mean Corpuscular HGB Conc 31.9 g/dL (30-55); Mean Corpuscular Volume 97.2 fl (85-98); Mean Platelet Volume 9.9 fL (7.4-10.4); Monocytes # 1.1 10^3/uL (0.2-0.9); Monocytes % 8.7 %; Neutrophils # 7.02 10^3/uL (1.8-7.7); Neutrophils % 55.1 %; Nucleated Red Blood Cells % 0 %; Platelet Count 282 10^3/cmm (157-399); Red Blood Count 3.97 10^6/uL (3.85-5.65); Red Cell Distribution Width 12.7 % (12.1-15.1); White Blood Count 12.74 10^3/uL (3.29-11.43)
[2024-05-22 01:10] LABS: INR 0.89 (0.8-1.2)
[2024-05-22 01:11] LABS: Partial Thromboplastin Time 19.6 SECONDS (23.9-36.7)
[2024-05-22 01:24] LABS: Acetaminophen < 5.0 ug/mL (10-30); Alanine Aminotransferase 37 U/L (0-33); Albumin Level 3.2 g/dL (3.5-5.2); Alcohol Level < 10 mg/dL (0-10); Alkaline Phosphatase 68 U/L (35-105); Anion Gap 13.2 (5-19); Aspartate Amino Transferase 18 U/L (0-32); Blood Urea Nitrogen 7 mg/dL (6-20); Calcium 8.6 mg/dL (8.5-10.5); Carbon Dioxide 24 mmol/L (22-29); Chloride 103 mmol/L (98-107); Creatinine Clr Calc Pharmacy 122.4389; Globulin 1.7 g/dL (1.3-4.6); Glomerular Filtration Rate 88.9 mL/min (90-130); Glucose 149 mg/dL (65-115); Magnesium 1.9 mg/dL (1.7-2.3); Osmolality Calculated 285 mOsm/kg (285-295); Potassium 3.2 mmol/L (3.5-5.1); Salicylate < 0.3 mg/dL (3-10); Sodium 137 mmol/L (136-145); Total Bilirubin 0.2 mg/dL (0.15-1.2); Total Protein 4.9 g/dL (6.6-8.7)
[2024-05-22] MEDS: valproic acid inj 500 MG in sodium chloride 0.9% 50 ML 55 MG IV (01:29)
[2024-05-22] MEDS: ondansetron 2 mg/ML SDV 2 mL 8 MG IVP (01:34)
[2024-05-22] MEDS: hyDRALAzine 20 mg/mL INJ 1 mL 10 MG IVP (01:36)
[2024-05-22 02:10] LABS: Bilirubin Urine Negative (Negative); Blood Urine Negative (Negative); Glucose Urine UA Negative (Normal); Ketones Urine Negative (Negative); Leukocyte Esterase Urine Negative (Negative); Nitrate Urine Negative (Negative); Protein Urine Negative (Negative); Specific Gravity, Urine 1.029 (1.005-1.030); Urine Appearance Clear (CLEAR); Urine Color Yellow (Yellow); Urobilinogen Urine 0.2 mg/dL (Negative)
[2024-05-22 02:12] LABS: Add Urine Microscopic? YES; Bacteria Urine None Seen /hpf; RBC Urine 0-2 /hpf (0-2); Squamous Epithelial Cell Urine 0-5 /hpf (0-5); WBC Urine 0-5 /hpf (0-5)
[2024-05-22 02:17] LABS: Amphetamines Screen Urine Negative (Negative); Barbiturates Screen Urine Negative (Negative); Benzodiazepines Screen Urine Negative (Negative); Cocaine Screen Urine Negative (Negative); Opiate Screen Urine Negative (Negative); PCP Screen Urine Negative (Negative); THC Screen Urine Positive (Negative)
--- NOTE | 2024-05-22 03:03 | MR_ITS ---
WS: [id number] MRI HEAD WITHOUT CONTRAST TECHNIQUE: Sagittal T1, T2 axial, T2 axial FLAIR, axial and coronal T1 images, axial susceptibility w eighted imaging, axial diffusion weighted images, and coronal T2 images were obtained. CLINICAL INFORMATION: cva COMPARISON: CT 05/22/2024 FINDINGS: No evidence of restricted diffusion to suggest acute ischemia. Ventricular system and basal cisterns are patent. 2 or 3 tiny foci of T2 hyperintensity in the supratentorial white matter can be seen with migraine headaches but of doubtful clinical significance. Normal posterior nasopharynx. Paranasal si nuses are well aerated. Mastoid air cells are well aerated. No hemosiderin on the susceptibly weighted images. Normal optic chiasm and pituitary infundibulum. Te mporal lobes and hippocampal formations are normal in appearance. Minimal low-lying cerebellar tonsil s. No other suspicious findings. MR/MR head wo con* [id number] IMPRESSION: 1. No evidence of restricted diffusion to suggest acute ischemia. 2. 2 or 3 tiny foci of T2 hyperintensity in the subcortical white matter can b e seen with migraine headaches but of doubtful clinical significance 3. No hemosiderin on the susceptibly weighted images. 4. Minimal cerebellar tonsillar ectopia. 5. No other acute findings.
--- NOTE | 2024-05-22 03:03 | USCV_ITS ---
Sandra Alfaro Age: 49 Gender: F : 1975 Exam Date: 05/22/2024 03:50 Ordering Phys: Lae Tejeda MD Technologist: MARSHA [place]am Location[place] [facility] [place] Indication: RIGHT facial droop BUBBLE STUDY BP: 140 / 98 HR: 72 Rhythm: Sinus Technical Quality: Adequate MEASUREMENTS (Male / Female) Normal Values 2D ECHO LV Diastolic Diameter PLAX 4.0 cm 4.2 - 5.9 / 3.9 - 5.3 cm IVS Diastolic Thickness 1.5 cm 0.6 - 1.0 / 0.6 - 0.9 cm IVS Systolic Thickness 1.8 cm LVPW Diastolic Thickness 1.2 cm 0.6 - 1.0 / 0.6 - 0.9 cm LVPW Systolic Thickness 1.5 cm LVOT Diameter 1.8 cm LV Ejection Fraction 2D Teich 54.5 % LV Ejection Fraction MOD 4C 54.5 % LV Ejection Fraction MOD 2C 50.5 % LV Ejection Fraction 2C AL 53.2 % LA Diameter 3.1 cm Aorta at Sinotubular Diameter 3.4 cm IVC Diameter 1.0 cm M-MODE LA Ao Ratio MM 1.0 AV Cusp Separation MM 2.4 cm DOPPLER AV Peak Velocity 111.0 cm/s LVOT Peak Velocity 100.0 cm/s AV Area Cont Eq vti 2.4 cm squared AV Area Cont Eq pk 2.4 cm squared MV Peak Velocity 85.0 cm/s MV Area PHT 3.8 cm squared Mitral E to A Ratio 1.0 TV Peak E Velocity 62.0 cm/s PV Peak Velocity 78.0 cm/s FINDINGS Left Ventricle Left ventricle is normal in size. LV systolic function is mildly reduced with EF of 45 to 50%. Mild global hypokinesis. Right Ventricle Normal in size and function Right Atrium Normal in size. No interatrial shunting noted on the bubble study. Left Atrium Normal in size Mitral Valve Structurally normal mitral valve. Aortic Valve Structurally normal aortic valve. Mild aortic regurgitation. No significant stenosis. Tricuspid Valve Mild tricuspid regurgitation. Insufficient TR jet to calculate RVSP Pulmonic Valve Not well visualized Pericardium Normal Aorta Normal in size IVC Appears to be normal CONCLUSIONS LV systolic function is mildly reduced with EF of 45 to 50%. No interatrial shunting is seen on bubble study. Mild aortic regurgitation. Mild tricuspid regurgitation. No comparison studies are available Mahamed Lind MD (Electronically Signed) Final Date: 22 May 2024 11:21 S
--- NOTE | 2024-05-22 03:04 | P.HP_ITS ---
Providers/Chief Complaint 2 Primary Care Provider: France Laguerre MD Chief Complaint: STROKE ALERT History of Present Illness Sandra Alfaro is a 49 year old female who does not have significant past medical history other than hypothyroidism, migraine, start experiencing presyncope, lightheadedness when she wanted to pick her dog and put on the bed, patient got up to took her Ambien with a drink when she could not swallow at that time she started noticing right-sided body weakness, facial numbness and left-sided headache. EMS was called. This was roughly around 11:30 PM. Stroke alert was called. Patient was given NIHS score of 2 at the time of evaluation and a score is 0. Her blood pressure and headache has improved. CT head did not show any intracranial hemorrhage however CT head and neck showed right vertebral artery occlusion. EKG showing sinus rhythm. Patient is asymptomatic at the time of my evaluation. I did not appreciate any facial droop I did inform the patient about right vertebral artery occlusion and ascending thoracic aneurysm 3.7 cm. Does not smoke, drinks alcohol occasionally. TSH normal. Positive for marijuana Review of Systems 2 Const: Denies: fever(s) Eyes: Denies: change in vision ENMT: Denies: throat pain Card: Denies: chest pain Resp: Denies: dyspnea Neuro: Reports: headache(s) and dizziness Medications/Allergies Home Medications Medication Instructions Recorded Confirmed Last Taken Type cyclobenzaprine 10 mg tablet 10 mg PO BEDTIME PRN Muscle Spasm 06/11/19 05/17/24 Unknown History diphenhydramine HCl 25 mg capsule 50 mg PO QID PRN Allergy Symptoms 06/11/19 05/17/24 Unknown History (Benadryl) zolpidem 5 mg tablet (Ambien) 5 mg PO BEDTIME PRN Sleep 06/11/19 05/17/24 Unknown History cetirizine 10 mg tablet (Zyrtec) 10 mg PO DAILY 08/07/20 05/17/24 04/08/23 History fluticasone propionate 50 1 spray intranasal DAILY PRN 08/07/20 05/17/24 Unknown History mcg/actuation nasal Allergy Symptoms spray,suspension (Flonase Allergy Relief) albuterol sulfate 2.5 mg/3 mL 2.5 mg inhalation Q6H PRN 09/14/21 05/17/24 Unknown History (0.083 %) solution for nebulization Shortness Of Breath alprazolam 0.25 mg tablet (Xanax) 0.25 mg PO DAILY PRN Anxiety 09/14/21 05/17/24 04/09/23 History pseudoephedrine HCl 30 mg tablet 30 mg PO Q6H PRN Congestion 09/14/21 05/17/24 Unknown History (Sudogest) ascorbic acid (vitamin C) 500 mg 500 mg PO DAILY 04/09/23 05/17/24 Unknown History tablet (Vitamin C) buspirone 5 mg tablet 5 - 10 mg PO TID 04/09/23 05/17/24 04/09/23 History estradiol 1 mg tablet 1 mg PO QAM 04/09/23 05/17/24 Unknown History fluticasone propionate 115 2 puff inhalation BID 04/09/23 05/17/24 Unknown History mcg-salmeterol 21 mcg/actuation HFA inhaler (Advair HFA) fremanezumab-vfrm 225 mg/1.5 mL 225 mg SUBCUT Q30D 04/09/23 05/17/24 Unknown History subcutaneous auto-injector (Ajovy) ibuprofen 200 mg tablet 800 mg PO Q6H PRN Pain 04/09/23 05/17/24 Unknown History levothyroxine 50 mcg tablet 50 mcg PO QAM 04/09/23 05/17/24 04/08/23 History milnacipran 100 mg tablet (Savella) 100 mg PO DAILY 04/09/23 05/17/24 Unknown History obyzghol-ynd-mnzy-FA-Ca carb-vit K 1 tab PO DAILY 04/09/23 05/17/24 Unknown History 18 mg iron-400 mcg-500 mg tablet naproxen 500 mg tablet,delayed 500 mg PO BID PRN pain #30 tabs 04/09/23 05/17/24 Unknown Rx release prochlorperazine maleate 10 mg See Rx Instructions .Route .COMPLEX 04/09/23 05/17/24 Unknown History tablet riboflavin (vitamin B2) 100 mg 100 mg PO DAILY 04/09/23 05/17/24 Unknown History tablet (Vitamin B-2) sumatriptan succinate 100 mg tablet See Rx Instructions .Route .COMPLEX 04/09/23 05/17/24 Unknown History Allergies Allergy/AdvReac Type Severity Reaction Status Date / Time No Known Allergies Allergy Verified 05/17/24 11:36 PFSH Acute 2 PFSH: Medical History Hypothyroidism Well woman exam with routine gynecological exam Migraine headache Degenerative arthritis of right knee Panic disorder Surgical History S/P breast biopsy (~03/2012) S/P hysterectomy (06/11/19) ASTRID THORNTON LOA. Diag: Pelvic pain, Retained menstrual blood. Performed by Dr. Star Lizarraga at [facility] in [place], [place]. Status post hysteroscopic ablation of endometrium (06/23/15) Hysteroscopy with hydrothermal endometrial ablation. Performed by Dr. Star Lizarraga at [facility] S/P lumpectomy, left breast (~2000) Performed at [facility] Family History Mother Hypertension Diabetes Thyroid disease Grandmother Hypertension Brother Diabetes Grandfather Heart disease maternal Unknown No problems noted. Sister Breast cancer, Onset Age: 50 Family/Other Breast cancer Maternal aunt, 40's Social History Smoking and tobacco/nicotine status: former use of tobacco/nicotine Quit status (tobacco/nicotine): has quit using Year quit tobacco: 04/2019 Alcohol intake: current Alcohol intake frequency: few times a month Substance/Drug Use: current Other substance/drug use details: Reports when needed Additional social history: Well balanced diet Vitals/I&O/Wt Last Vital Signs Temp 95 F L 05/22/24 00:59 Pulse 82 05/22/24 02:04 Resp 16 05/22/24 02:04 BP 171/107 05/22/24 01:04 Pulse Ox 97 05/22/24 02:04 O2 Del Method Room Air 05/22/24 00:42 05/21/24 05/21/24 05/22/24 14:59 22:59 06:59 Intake Total 0 / 0 Balance 0 / 0 Weight last 48 hrs Weight 107.048 kg Physical Exam 2 Narrative: Patient is awake and alert GCS 15 I do not appreciate any focal deficit I did not appreciate any facial droop NIH 0 Hemodynamically stable Sinus rhythm Currently on room air No pronator drift Gait was not tested Patient is asked stating that she is very cold has bear hugger on S1, S2 Abdomen soft Able to move all of her extremities without difficulty Data 05/22/24 00:56 05/22/24 00:56 A&P Assessment and plan (1) Hypothyroidism: (2) Menopause: (3) Fibromyalgia: (4) Migraine headache: Qualifiers: Migraine type: without aura Status migrainosus presence: with status migrainosus Intractability: intractable Qualified Code(s): G43.011 - Migraine without aura, intractable, with status migrainosus (5) Facial droop: Plan Right-sided facial droop, right-sided body weakness and left-sided headache Symptoms improved by the time I evaluated the patient NIH score 0 at the time of my evaluation CTA head consistent with right vertebral artery occlusion which would not explain her facial droop however would explain her presyncope Chronicity of occlusion unknown at this point I will put patient on therapeutic Lovenox, monitor on telemetry Currently she is in sinus rhythm Multiple PVCs noted I will put her on aspirin and high-dose statins PT OT ST and MRI head Case has been discussed with Dr. Huertas by the ER physician I do not appreciate any facial droop I would allow her to eat for now DVT prophylaxis covered with therapeutic Lovenox Full code Continue levothyroxine New finding of a ascending thoracic aortic aneurysm 3.7 cm patient was informed, she will need vascular follow-up outpatient and close monitoring She was told about strict blood pressure goals and keeping blood pressure and heart rate as follows: Blood pressure below 130/80 mmHg and heart rate below 80 Will add lisinopril and labetalol Attestations 2 Medical Necessity Statement*: Anticipating discharge within 48 hours Diagnoses Hypothyroidism E03.9 Menopause Z78.0 Fibromyalgia M79.7 Intractable migraine without aura and with status migrainosus G43.011 Migraine type: without aura Status migrainosus presence: with status migrainosus Intractability: intractable Facial droop R29.810
[2024-05-22] MEDS: enoxaparin 120 mg/0.8 mL Syringe 110 MG SUBCUT (04:58)
[2024-05-22] MEDS: morphine IR 15 mg Tablet PO (05:03)
[2024-05-22 05:08] LABS: Vitamin B12 527 pg/mL (232-1245)
[2024-05-22 05:32] LABS: Basophils # 0.1 10^3/uL (0.0-0.1); Basophils % 0.6 %; Eosinophils % 0.1 %; Hematocrit 43.1 % (36-47); Lymphocytes # 1.6 10^3/uL (0.8-4.8); Lymphocytes % 10.3 %; Mean Corpuscular HGB Conc 32.5 g/dL (30-55); Mean Corpuscular Hemoglobin 30.8 pg (27-33); Mean Corpuscular Volume 94.9 fl (85-98); Mean Platelet Volume 10.3 fL (7.4-10.4); Monocytes # 1.2 10^3/uL (0.2-0.9); Monocytes % 7.7 %; Neutrophils # 12.54 10^3/uL (1.8-7.7); Neutrophils % 78.9 %; Nucleated Red Blood Cells % 0 %; Platelet Count 241 10^3/cmm (157-399); Red Blood Count 4.54 10^6/uL (3.85-5.65); Red Cell Distribution Width 12.8 % (12.1-15.1); White Blood Count 15.89 10^3/uL (3.29-11.43)
[2024-05-22 05:51] LABS: Anion Gap 15.8 (5-19); Blood Urea Nitrogen 7 mg/dL (6-20); Calcium 9.1 mg/dL (8.5-10.5); Carbon Dioxide 26 mmol/L (22-29); Chloride 102 mmol/L (98-107); Creatinine Clr Calc Pharmacy 122.4389; Glomerular Filtration Rate 88.9 mL/min (90-130); Glucose 126 mg/dL (65-115); Magnesium 1.9 mg/dL (1.7-2.3); Osmolality Calculated 290 mOsm/kg (285-295); Potassium 3.8 mmol/L (3.5-5.1); Sodium 140 mmol/L (136-145)
[2024-05-22] MEDS: acetaminophen 500 mg Tablet PO ×2 (06:28→10:27)
[2024-05-22] MEDS: lisinopril 10 mg Tablet PO (07:02)
[2024-05-22] MEDS: labetalol 200 mg Tablet 100 MG PO (07:02)
[2024-05-22] MEDS: aspirin 81 mg EC Tablet PO (07:49)
[2024-05-22] MEDS: atorvastatin 40 mg Tablet 80 MG PO (07:49)
[2024-05-22] MEDS: ondansetron 2 mg/ML SDV 2 mL 4 MG IVP (07:52)
--- NOTE | 2024-05-22 09:16 | PC.SLP ---
attempted global technical writer eval-cargiver in room reported nausea and finally sleeping-will try again later
[2024-05-22] MEDS: haloperidol inj 5 mg/mL INJ 1 mL IM (10:24)
--- NOTE | 2024-05-22 11:00 | PC.OT ---
OT EVALUATION ATTEMPTED AT 1020; NURSING STATES THAT THE PATIENT WILL BE GOING TO MRI AT ANY MOMENT.
--- NOTE | 2024-05-22 11:37 | P.DS_ITS ---
Discharge Providers Date of Admission: 05/22/24 02:55 Date of Discharge: May 22, 2024 Attending Provider at Admission: Lea Tejeda MD Attending Provider at Discharge: Magdi Landers MD Primary Care Provider: France Laguerre MD Diagnoses at Discharge Discharge Diagnosis (1) Hypothyroidism: Status: Acute (2) Menopause: Status: Acute (3) Fibromyalgia: Status: Chronic (4) Migraine headache: Status: Acute Qualifiers: Intractability: intractable Migraine type: without aura Status migrainosus presence: with status migrainosus Qualified Code(s): G43.011 - Migraine without aura, intractable, with status migrainosus (5) Facial droop: Status: Acute (6) Thrombosis, arteries, vertebral: Status: Acute (7) Systolic congestive heart failure: Status: Acute (8) LV dysfunction: Status: Acute (9) Thoracic aortic aneurysm: Status: Acute Reason for Visit Reason for Visit: STROKE ALERT Brief History: History as per HPI: Sandra Alfaro is a 49 year old female who does not have significant past medical history other than hypothyroidism, migraine, start experiencing presyncope, lightheadedness when she wanted to pick her dog and put on the bed, patient got up to took her Ambien with a drink when she could not swallow at that time she started noticing right-sided body weakness, facial numbness and left-sided headache. EMS was called. This was roughly around 11:30 PM. Stroke alert was called. Patient was given NIHS score of 2 at the time of evaluation and a score is 0. Her blood pressure and headache has improved. CT head did not show any intracranial hemorrhage however CT head and neck showed right vertebral artery occlusion. EKG showing sinus rhythm. Patient is asymptomatic at the time of my evaluation. I did not appreciate any facial droop I did inform the patient about right vertebral artery occlusion and ascending thoracic aneurysm 3.7 cm. Does not smoke, drinks alcohol occasionally. TSH normal. Positive for marijuana Hospital Course Hospital Course Patient was admitted to the hospital for evaluation and management of a possible stroke in setting of right-sided facial numbness and drooping. Neurology was consulted. Patient was not found to be a candidate for tenecteplase. CT imaging along with MRI were negative for any signs of stroke. CTA was concerning for right-sided vertebral artery stenosis along with thoracic aortic aneurysm. This possible patient symptoms are most likely in setting of complex migraine. Symptoms had resolved by morning and she worked well with physical therapy, speech therapy. Echocardiogram was done which was concerning for a new EF of 45%. Patient does complain of occasional chest pain and chest pressure on exertion. Patient was counseled for further workup for ACS with cardiac stress test and possible cardiac angiogram but she wanted to get all the blood work and further workup as an outpatient. Her antihypertensives were adjusted in setting of new diagnosis of congestive heart failure, aortic aneurysm. Going forward she is to take lisinopril 10 mg oral daily and Coreg 6.25 mg twice daily. She has been counseled to have a goal blood pressure less than 140/90 mmHg and to check her blood pressure daily at home and maintain a blood pressure diary and follow-up with a primary care provider further adjustment of antihypertensive as needed. She is also not been taking aspirin 81 mg daily along with atorvastatin 80 mg nightly. She is to have a Lexiscan stress test as an outpatient. She will follow-up with a primary care provider within next 1 week and neurologist within next 2 weeks. Physical Exam Narrative: General: No acute distress, AO x3 HEENT: PERRLA, pupils bilaterally equal and reactive Chest: Normal vesicular breath sounds, no added sounds, equal good air entry aspen aterally CVS: S1-S2 regular, no murmurs, no tachycardia, no gallops, no rubs Abdomen: Soft, nontender, no organomegaly, bowel sounds present Neuro: No focal deficits, no facial deformity, AO x3, power 5/5 in all limbs Discharge Data Studies Completed and Pending Completed Studies During Hospitalization Category Date Time Status CT angio headneck* [id number] Stat Cat Scan 05/22/24 00:[address] head thrombolytic 54088 Stat Cat Scan 05/22/24 00:43 Completed XR chest 1V portable [id number] Stat Exams 05/22/24 00:43 Completed MR head wo con* [id number] Routine MRI 05/22/24 03:03 Completed CV. echo lmt wo/w bubble [id number] Routine Ultrasound 05/22/24 03:03 Completed Pending at discharge Category Date Time Status A1C [Hemoglobin A1C] Routine Lab 05/22/24 05:20 Received Complete Blood Count w/Auto AM LABS Lab 05/23/24 04:00 Ordered Comprehensive Metabolic Panel AM LABS Lab 05/23/24 04:00 Ordered Folate Level AM LABS Lab 05/23/24 04:00 Ordered Lipid Profile w/VLDL Routine Lab 05/22/24 05:20 Received TIBC [Total Iron Binding Capacity] Routine Lab 05/22/24 05:20 Received Radiology Impressions Chest X-Ray 05/22/24 00:43 IMPRESSION: No acute findings. Head CT 05/22/24 00:43 IMPRESSION: No acute intracranial findings. ASSESSMENT: ASPECTS (Sujey Stroke Program Early CT Score) is 10. ADDENDUM: 05/22/24 0109 The patient's physician, Noah Hartman was informed by phone by Dr. 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 The ordering physician verbalized understanding. Head/Neck CTA 05/22/24 00:43 IMPRESSION: 1. No acute intracranial findings. 2. 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 Brain MRI without IV contrast is recommended. 3. No other major intracranial artery aneurysm, stenosis or occlusion. 4. Intracranial venous sinuses are patent. IMPRESSION: 1. 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 No blood flow in the mid and distal segments of the right vertebral artery. 2. The ascending thoracic aorta is dilated to 3.7 cm in diameter. Aortic arch is normal in size. REFERENCES: NASCET CRITERIA. The degree of stenosis in the cervical segment of the internal carotid artery is based on NASCET criteria. Normal is no stenosis. Mild is less than 50% stenosis. Moderate is 50-69% stenosis. Severe is 70% to 99% stenosis. Total occlusion is no detectable patent lumen. ADDENDUM: 05/22/24 0150 THIS REPORT CONTAINS FINDINGS THAT MAY BE CRITICAL TO PATIENT CARE. The findings and recommendations were verbally communicated via telephone conference with Noah Hartman by Dr. 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 The findings were acknowledged and understood. Head MRI 05/22/24 03:03 IMPRESSION: 1. No evidence of restricted diffusion to suggest acute ischemia. 2. 2 or 3 tiny foci of T2 hyperintensity in the subcortical white matter can be seen with migraine headaches but of doubtful clinical significance 3. No hemosiderin on the susceptibly weighted images. 4. Minimal cerebellar tonsillar ectopia. 5. No other acute findings. Echocardiogram: CONCLUSIONS LV systolic function is mildly reduced with EF of 45 to 50%. No interatrial shunting is seen on bubble study. Mild aortic regurgitation. Mild tricuspid regurgitation. No comparison studies are available Mahamed Lind MD (Electronically Signed) Final Date: 22 May 2024 11:21 Laboratory Results WBC 15.89 10^3/uL (3.29-11.43) H 05/22/24 05:20 RBC 4.54 10^6/uL (3.85-5.65) 05/22/24 05:20 Hgb 14.00 g/dL (11.27-16.99) 05/22/24 05:20 Hct 43.1 % (36-47) 05/22/24 05:20 MCV 94.9 fl (85-98) 05/22/24 05:20 MCH 30.8 pg (27-33) 05/22/24 05:20 MCHC 32.5 g/dL (30-55) 05/22/24 05:20 RDW 12.8 % (12.1-15.1) 05/22/24 05:20 Plt Count 241 10^3/cmm (157-399) 05/22/24 05:20 MPV 10.3 fL (7.4-10.4) 05/22/24 05:20 Neut % (Auto) 78.9 % 05/22/24 05:20 Lymph % (Auto) 10.3 % 05/22/24 05:20 [place] % (Auto) 7.7 % 05/22/24 05:20 Eos % (Auto) 0.1 % 05/22/24 05:20 Baso % (Auto) 0.6 % 05/22/24 05:20 Neut # (Auto) 12.54 10^3/uL (1.8-7.7) H 05/22/24 05:20 Lymph # (Auto) 1.6 10^3/uL (0.8-4.8) 05/22/24 05:20 [place] # (Auto) 1.2 10^3/uL (0.2-0.9) H 05/22/24 05:20 Eos # (Auto) 0.0 10^3/uL (0.0-0.8) 05/22/24 05:20 Baso # (Auto) 0.1 10^3/uL (0.0-0.1) 05/22/24 05:20 Nucleated RBC % (auto) 0 % 05/22/24 05:20 Nucleated RBCs # 0.0 /100WBC 05/22/24 05:20 PT 12.30 SECONDS (12.1-14.9) 05/22/24 00:56 INR 0.89 (0.8-1.2) 05/22/24 00:56 APTT 19.6 SECONDS (23.9-36.7) L 05/22/24 00:56 Sodium 140 mmol/L (136-145) 05/22/24 05:20 Potassium 3.8 mmol/L (3.5-5.1) 05/22/24 05:20 Chloride 102 mmol/L (98-107) 05/22/24 05:20 Carbon Dioxide 26 mmol/L (22-29) 05/22/24 05:20 Anion Gap 15.8 (5-19) 05/22/24 05:20 BUN 7 mg/dL (6-20) 05/22/24 05:20 Creatinine 0.7 mg/dL (0.5-0.9) 05/22/24 05:20 GFR Calculation 88.9 mL/min (90-130) L 05/22/24 05:20 Glucose 126 mg/dL (65-115) H 05/22/24 05:20 Calculated Osmolality 290 mOsm/kg (285-295) 05/22/24 05:20 Calcium 9.1 mg/dL (8.5-10.5) 05/22/24 05:20 Magnesium 1.9 mg/dL (1.7-2.3) 05/22/24 05:20 Total Bilirubin 0.2 mg/dL (0.15-1.2) 05/22/24 00:56 AST 18 U/L (0-32) 05/22/24 00:56 ALT 37 U/L (0-33) H 05/22/24 00:56 Alkaline Phosphatase 68 U/L (35-105) 05/22/24 00:56 C-Reactive Protein 3.0 mg/L (0.0-4.9) 05/22/24 00:56 Total Protein 4.9 g/dL (6.6-8.7) L 05/22/24 00:56 Albumin 3.2 g/dL (3.5-5.2) L 05/22/24 00:56 Globulin 1.7 g/dL (1.3-4.6) 05/22/24 00:56 Vitamin B12 527 pg/mL (232-1245) 05/22/24 00:56 TSH 3.30 uIU/mL (0.27-4.20) 05/22/24 00:56 Urine Color Yellow (Yellow) 05/22/24 02:03 Urine Appearance Clear (CLEAR) 05/22/24 02:03 Urine pH 7.0 (5-7) 05/22/24 02:03 Ur Specific [place] 1.029 (1.005-1.030) 05/22/24 02:03 Urine Protein Negative (Negative) 05/22/24 02:03 Urine Glucose (UA) Negative (Normal) 05/22/24 02:03 Urine Ketones Negative (Negative) 05/22/24 02:03 Urine Blood Negative (Negative) 05/22/24 02:03 Urine Nitrate Negative (Negative) 05/22/24 02:03 Urine Bilirubin Negative (Negative) 05/22/24 02:03 Urine Urobilinogen 0.2 mg/dL (Negative) 05/22/24 02:03 Ur Leukocyte Esterase Negative (Negative) 05/22/24 02:03 Urine RBC 0-2 /hpf (0-2) 05/22/24 02:03 Urine WBC 0-5 /hpf (0-5) 05/22/24 02:03 Ur Squamous Epith Cells 0-5 /hpf (0-5) 05/22/24 02:03 Amorphous Sediment Not Reportable 05/22/24 02:03 Urine Bacteria None seen /hpf (NONE) 05/22/24 02:03 Hyaline Casts 0.40 /lpf 05/22/24 02:03 Salicylates < 0.3 mg/dL (3-10) L 05/22/24 00:56 Urine Opiates Screen Negative ng/mL (Negative) 05/22/24 02:03 Acetaminophen < 5.0 ug/mL (10-30) L 05/22/24 00:56 Ur Barbiturates Screen Negative ng/mL (Negative) 05/22/24 02:03 Ur Phencyclidine Scrn Negative ng/mL (Negative) 05/22/24 02:03 Ur Amphetamines Screen Negative ng/mL (Negative) 05/22/24 02:03 U Benzodiazepines Scrn Negative ng/mL (Negative) 05/22/24 02:03 Urine Cocaine Screen Negative ng/mL (Negative) 05/22/24 02:03 U Marijuana (THC) Screen Positive ng/mL (Negative) H 05/22/24 02:03 Ethyl Alcohol < 10 mg/dL (0-10) 05/22/24 00:56 Vitals Last Vital Signs Temp 97.5 F L 05/22/24 07:34 Pulse 88 05/22/24 09:00 Resp 18 05/22/24 09:00 BP 130/91 05/22/24 07:34 Pulse Ox 97 05/22/24 09:00 O2 Del Method Room Air 05/22/24 09:00 Discharge Plan Discharge Patient Disposition: Home Condition: Stable Prescriptions: New atorvastatin 40 mg Tablet 80 mg PO DAILY Qty: 60 0RF aspirin 81 mg Tablet,Delayed Release (Dr/Ec) 81 mg PO DAILY Qty: 30 0RF lisinopril 10 mg Tablet 10 mg PO DAILY Qty: 30 0RF carvedilol [Coreg] 6.25 mg tablet 6.25 mg PO BID Qty: 60 0RF Rx Instructions: must administer with a meal/food Continued alprazolam [Xanax] 0.25 mg tablet 0.25 mg PO DAILY PRN (Reason: Anxiety) buspirone 5 mg tablet 5 - 10 mg PO TID ascorbic acid (vitamin C) [Vitamin C] 500 mg Tablet 500 mg PO DAILY levothyroxine 50 mcg tablet 50 mcg PO QAM fluticasone propion-salmeterol [Advair HFA] 115-21 mcg/actuation HFA aerosol inhaler 2 puff INHALATION BID Savella 100 mg tablet 100 mg PO DAILY ot-wx-zrhy-FA-Ca carb-vit K 18 mg iron-400 mcg-500 mg Tablet 1 tab PO DAILY Ajovy Autoinjector 225 mg/1.5 mL auto-injector 225 mg SUBCUT Q30D estradiol 1 mg tablet 1 mg PO QAM rizatriptan 10 mg tablet,disintegrating 10 mg PO Q2H PRN (Reason: Migraine Headache) Ubrelvy 100 mg tablet 100 mg PO DAILY PRN (Reason: Migraine Headache) Discharge Orders: Discharge Order (Routine); Ordered 05/22/24 Ordered By: Magdi Landers Other Ambulatory Orders: Sestamibi Stress Test Request (Routine) Timeframe: 1 Week Facility: [facility] - Location: Cardiac Diagnostic Laboratory Ordered By: Magdi Landers Referrals: France Laguerre MD [Primary Care Provider] - 06/03/24 11:00 am Rj Huertas MD [Physician] - 2 weeks (We have notified your physician's clinic of the need for a follow-up appointment to be scheduled. If you have not heard from them within the next 2 business days, please call them directly. ) Discharge Diet: Cardiac and Diabetic Discharge Activity: Resume usual activity and Increase activity as tolerated Patient Instructions: Lisinopril (By mouth), Aspirin (By mouth), Atorvastatin (By mouth), Carvedilol (By mouth), Heart Failure (GEN), CHF Stoplight, Opioid Safety Activity Restrictions/Additional Instructions: [facility] WILL CALL WITH APPOINTMENT FOR STRESS TEST Discharge Attestations Time Spent in Discharge Care*: greater than 30 min Specific Discharge Activities: educating patient, educating and/or supporting family/caregiver, discussing with pcp/other providers, discussing with case reviewer/social workers/dc planners, documenting/other paperwork and evaluating patient/reviewing data Status at Discharge: Cognitive status at discharge: cognitively intact , Behavioral status at discharge: cooperative , Quality Metrics Clinical Quality Measures [ No reported AMI, CVA or VTE this stay] Coding Level of Care Code 32928 Total time (in minutes) for Discharge: 90 Diagnoses Hypothyroidism E03.9 Menopause Z78.0 Fibromyalgia M79.7 Intractable migraine without aura and with status migrainosus G43.011 Intractability: intractable Migraine type: without aura Status migrainosus presence: with status migrainosus Facial droop R29.810 Thrombosis, arteries, vertebral I65.09 Systolic congestive heart failure I50.20 LV dysfunction I51.9 Thoracic aortic aneurysm I71.20
[2024-05-22 11:52] LABS: Chol HDL Ratio 2.76 mg/dL (0.0-4.40); Cholesterol 215 mg/dL (0-200); HDL Cholesterol 78 mg/dL (60-100); Iron 31 ug/dL (37-145); LDL Cholesterol Calculated 117 mg/dL (50-129); Percent Saturation 11.1 % (20-50); Total Iron Binding Capacity 279 mcg/dl; Triglycerides 98 mg/dL (0-150); Unsaturated Iron Binding 248 ug/dL (112-347); VLDL Cholestrol Calculation 20 mg/dL (0-30)
--- NOTE | 2024-05-22 12:31 | PC.NURSE ---
D/C pending transportation home.
[2024-05-22 15:04] LABS: Estmated Average Glucose 97
== END 2024-05-22 13:51 | disposition home or self-care (01) ==
LOC: ER 01:01 → MEDSURG 05:09
PROVIDERS: Admitting Provider Internal Medicine; Emergency Provider Emergency Medicine; PCP Family Medicine; Visit Provider Student in an Organized Health Care Education/Training Program
DX: I71.20 Thoracic aortic aneurysm, without rupture, unspecified (principal); I51.9 Heart disease, unspecified; I50.20 Unspecified systolic (congestive) heart failure; I65.09 Occlusion and stenosis of unspecified vertebral artery; R29.810 Facial weakness; G43.011 Migraine without aura, intractable, with status migrainosus; M79.7 Fibromyalgia; Z78.0 Asymptomatic menopausal state; E03.9 Hypothyroidism, unspecified
CPT/HCPCS: 70450; 70496; 70498; 70551; 71045; 80048; 80053; 80061; 80306; 80307; 81001; 82607; 83036; 83540; 83550; 83735; 84443; 85025; 85610; 85730; 86140; 92610; 93005; 96365; 96372; 96375; 96376; 97116; 97161; 99285; C8924; G0378; J0360; J1630; J1650; J2405; J3490

== ENCOUNTER 2024-06-24 08:11 | Outpatient (CLI) | payer MEDICAID, SELFPAY ==
--- NOTE | 2024-06-24 | ECG_ITS ---
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 Baseline heart rate was 77 beats per minute. Baseline blood pressure was 128/88 millimeters of mercury. Target heart rate was 171 beats per minute. Maximum heart rate achieved was 156, which was 91% of the target heart rate. Maximum blood pressure was 176/94 millimeters of mercury. Total exercise time was 7 minutes 56 seconds. Maximum METs achieved was 10.2, maximum VO2 was 35.7. The reason for ending the test was maximum effort achieved. The patient complained of shortness of breath during the stress test, which then resolved at the end of the test. ELECTROCARDIOGRAM: BASELINE: Showed sinus rhythm, normal axis, anteroseptal T wave inversion cannot rule out ischemia. EXERCISE: At the peak exercise level, anteroseptal T wave inversion improved, no significant ST-T changes suggestive of ischemia noted. RECOVERY: During the recovery period, heart rate dropped appropriately. No significant ST-T changes in the recovery suggestive of ischemia noted. CONCLUSION: 1. Exercise capacity fair 2. Heart rate response was appropriate. 3. Blood pressure response was hypertensive. 4. Symptoms not suggestive of ischemia. 5. Electrocardiogram portion of the stress test was not suggestive of ischemia. Electronically Signed On 07-15-2024 21:34:40 SECURITY GUARD by TAMMY WALTERS [email or web address]
[2024-06-24 08:27] VITALS: BMI 35.5
--- NOTE | 2024-06-24 08:31 | NMCV_ITS ---
NM iris perf SPECT r/s* [id number] Sandra Alfaro Age: 49 Gender: F : 1975 Exam Date: 06/24/2024 09:06 Ordering Phys: France Laguerre MD Technologist: SHANTE Whiting Exam Location: [facility] Indications: dyspnea STRESS TEST Please see separate stress test report in [facility] for full findings IMAGE PROTOCOL Rest/Stress 1 Exercise Day Radiopharmaceutical Dose (mCi) Administration Site Administered by Rest: Tc-99m 10.5 IV SHANTE Whiting Sestamibi Stress:Tc-99m 32.6 IV SHANTE Simmons Sestamibi Rest: 24-Jun-2024 60 Discovery 630 Stress: 24-Jun-2024 15 Discovery 630 Radiopharmaceutical was injected at 86 % maximum heart rate. Images obtained in supine and prone position. SPECT RESULTS Technical Quality: Good Raw Data Analysis: Normal Image Corrections: No attenuation or motion correction applied Summed Stress Score: 0 Summed Rest Score: 1 Summed Difference Score: 0 PERFUSION FINDINGS Large area of patchy decreased tracer uptake noted in mid to distal anterior and basal to distal inferior inferoseptal wall on the rest images which improved significantly on the stress images suggestive of artifact however there is small area of fixed perfusion defect noted in mid anterior wall which could be old myocardial infarction versus scarring in the absence of wall motion abnormality could be artifact. FUNCTIONAL RESULTS (calculated via Gated SPECT) Stress Image LV EF (%): 73 Stress EDV (mL):77 TID: 0.97 Stress ESV (mL):21 FUNCTIONAL FINDINGS: There is normal left ventricular systolic function. IMPRESSIONS The study is negative for ischemia. EKG segment will be documented separately. Lea Chase MD (Electronically Signed) Final Date: 24 June 2024 13:42 S
[2024-06-24 10:00] VITALS: BP 164/89; PULSE 104
== END 2024-06-24 08:12 | disposition home or self-care (01) ==
LOC: CDL 08:11
PROVIDERS: PCP Family Medicine; Visit Provider Family Medicine
DX: R06.00 Dyspnea, unspecified (principal); I65.09 Occlusion and stenosis of unspecified vertebral artery; R93.1 Abnormal findings on diagnostic imaging of heart and coronary circulation
CPT/HCPCS: 36415; 78452; 93017; A9500

== ENCOUNTER 2024-07-04 13:47 | Outpatient (CLI) | payer MEDICAID, SELFPAY ==
--- NOTE | 2024-07-04 14:02 | MM_ITS ---
WS: [id number] BILATERAL 3D TOMOSYNTHESIS DIGITAL DIAGNOSTIC MAMMOGRAPHY WITH CAD CLINICAL INFORMATION: RT BREAST TENDERNESS HISTORY: Bilateral breast lumps COMPARISON: 2023 TECHNIQUE: Bilateral CC, MLO, and ML views. FINDINGS: Scattered fibroglandular densities bilaterally. Palpable markers LEFT breast. Normal underlying paren chymal tissue. Ultrasound is pending. Incidental stable lymph node LEFT axillary tail. Pain RIGHT breast. Parenchymal pattern is unchanged compared to previous. ULTRASOUND BREAST BILATERAL TECHNIQUE: Ultrasound bilateral breast focused area of concern. CLINICAL INFORMATION: RT BREAST TENDERNESS FINDINGS: RIGHT BREAST: Ultrasound RIGHT breast area of pain. Ultrasound RIGHT axilla patient directed. No susp icious cystic or solid lesions. No suspicious lesions in the area of concern. LEFT BREAST: Ultrasound LEFT breast in the areas of patient directed lumps. Ultrasound LEFT axilla pa tient directed. Ultrasound LEFT breast at the 2 o'clock position 10 cm from the nipple. Ultrasound 12 o'clock position 6 cm from the nipple. No suspicious cystic or solid lesions in the LEFT breast. No suspicious lesions to target for biopsy. MM/MM diag tomosynthesis [id number] IMPRESSION: DENSITY: There are scattered areas of fibroglandular density. BI-RADS: 2 - Benign. FOLLOW UP: 1 Year Follow-up Recommend return to annual screening mammography.
== END 2024-07-04 13:48 | disposition home or self-care (01) ==
LOC: RAD 13:49
PROVIDERS: PCP Family Medicine; Visit Provider Family Medicine
DX: N60.19 Diffuse cystic mastopathy of unspecified breast (principal); R92.323 Mammographic fibroglandular density, bilateral breasts; R59.0 Localized enlarged lymph nodes
CPT/HCPCS: 76642; 77062; G0279